=== PATIENT | female | born 1965 | race Caucasian/White ===

== ENCOUNTER 2016-12-11 11:56 | Inpatient (IN) | payer OTHER ==
[~2016-12-11] VITALS: Ht 165.1 cm; Wt 65.8 kg
[2016-12-11 12:05] VITALS: BP_SYST 116
[2016-12-11 12:55] LABS: BILIRUBIN,URINE NEGATIVE (NEGATIVE); BLOOD, URINE 3+ (NEGATIVE); CLARITY/URINE HAZY (CLEAR); COLOR,URINE RED (YELLOW); GLUCOSE,URINE 3+ (NEGATIVE); KETONES,URINE 3+ (NEGATIVE); LEUKOCYTE ESTERASE ,URINE NEGATIVE (NEGATIVE); NITRITE, URINE NEGATIVE (NEGATIVE); PROTEIN URINE 1+ (NEGATIVE); UROBILINOGEN,URINE 0.2 (0.2-1.0)
[2016-12-11 12:59] LABS: BASOPHILS # (AUTO) 0.1 K/uL (0.0-0.2); BASOPHILS % (AUTO) 0.6 % (0.0-2.0); EOSINOPHILS % (AUTO) 0.3 % (0.0-4.0); LYMPHOCYTES # (AUTO) 2.1 K/uL (1.0-5.5); LYMPHOCYTES % (AUTO) 19.6 % (20.5-51.5); MEAN CORPUSCULAR HEMOGLOBIN 19 pg (27-31); MEAN CORPUSCULAR HGB CONC 30 % (32-36); MEAN CORPUSCULAR VOLUME 63 fL (79.0-98.0); MONOCYTES # (AUTO) 0.4 K/uL (0.0-1.0); MONOCYTES % (AUTO) 3.4 % (1.7-9.3); NEUTROPHILS # (AUTO) 7.9 K/uL (1.8-7.7); NEUTROPHILS % (AUTO) 76.1 % (40.0-70.0); PLATELET COUNT (AUTO) 333 K/uL (130-430); WHITE BLOOD COUNT (AUTO) 10.5 K/uL (4.8-10.8)
[2016-12-11 13:07] LABS: HEMOGLOBIN 6.6 g/dL (12.0-16.0)
[2016-12-11 13:08] LABS: INR 0.9 (0.8-1.2); PROTHROMBIN TIME 9.7 SECS (9.5-12.5)
[2016-12-11 13:13] LABS: BACTERIA,URINE FEW /HPF (None Seen); RBC,URINE >100 /HPF (0-3); WBC,URINE 0-3 /HPF (0-3)
[2016-12-11 13:17] LABS: ALBUMIN 3.3 g/dL (3.4-4.8); CALCIUM 8.8 mg/dL (8.4-11.0); CREATININE 1.17 mg/dL (0.55-1.30); POTASSIUM 5.2 mmol/L (3.5-5.1); TOTAL BILIRUBIN 0.5 mg/dL (0.0-1.0)
[2016-12-11] MEDS ORDERED: LISI-600 PO (13:57)
[2016-12-11] MEDS ORDERED: INSU100V (13:57)
[2016-12-11] MEDS ORDERED: INSU100V9 SUBCUT (13:57)
[2016-12-11] MEDS ORDERED: INSULIN REGULAR, HUMAN 10 UNITS/0.1 ML INJ IVP ONE (14:00)
[2016-12-11] MEDS ORDERED: NACL 0.9% 1,000 ML IV ONE (14:00)
[2016-12-11 15:07] LABS: BLOOD GAS PH 7.302 (7.350-7.450)
[2016-12-11 15:08] LABS: ABG TOTAL HEMOGLOBIN 6.5 G/dL (12.0-18.0); BLOOD GAS BASE EXCESS -11.4 mmol/L (-3.0-3.0); BLOOD O2Hb% 40.4 % (94.0-97.0)
[2016-12-11 15:09] LABS: BLOOD GAS HHB 58.3 % (0.0-6.0)
[2016-12-11 16:00] VITALS: BP_SYST 91
[2016-12-11] MEDS: NACL 0.9% 1,000 ML IV SCH ×2 (16:32→22:10)
[2016-12-11] MEDS: INSULIN REGULAR, HUMAN 100 UNITS/ML, 10 ML VIAL (novoLIN R) SUBCUT PRN ×2 (17:27→22:13)
[2016-12-11 17:31] LABS: CALCIUM 8.3 mg/dL (8.4-11.0); CREATININE 1.12 mg/dL (0.55-1.30); POTASSIUM 4.6 mmol/L (3.5-5.1)
[2016-12-11 20:00] VITALS: BP_SYST 108
[2016-12-11 23:36] VITALS: BP_SYST 101
[2016-12-12] MEDS: INSULIN REGULAR, HUMAN 100 UNITS/ML, 10 ML VIAL (novoLIN R) SUBCUT PRN ×2 (00:53→12:21)
[2016-12-12 03:39] VITALS: BP_SYST 117
[2016-12-12] MEDS: NACL 0.9% 1,000 ML IV SCH ×2 (04:50→09:08)
[2016-12-12 05:03] LABS: HEMATOCRIT 25.8 % (36-48); HEMOGLOBIN 8.1 g/dL (12.0-16.0)
[2016-12-12 07:14] LABS: CALCIUM 8.5 mg/dL (8.4-11.0); POTASSIUM 4.1 mmol/L (3.5-5.1)
[2016-12-12 08:00] VITALS: BP_SYST 122
[2016-12-12] MEDS ORDERED: PANTOPRAZOLE SODIUM 40 MG/VIAL (PROTONIX) IVP SCH (09:00)
[2016-12-12 12:08] VITALS: BP_SYST 129
[2016-12-12 12:49] VITALS: BP_SYST 129
== END 2016-12-12 13:21 | disposition home or self-care (01) ==
LOC: SED 11:56 → STU 15:17
PROC: 30233N1 Transfusion of Nonautologous Red Blood Cells into Peripheral Vein, Percutaneous Approach (ICD-10-PCS; principal; 2016-12-11)
DX: N93.8 Other specified abnormal uterine and vaginal bleeding (principal); E87.2 Acidosis; D64.9 Anemia, unspecified; E11.65 Type 2 diabetes mellitus with hyperglycemia; I10 Essential (primary) hypertension; Z79.4 Long term (current) use of insulin; Z79.899 Other long term (current) drug therapy
CPT/HCPCS: 36415; 36600; 76830-TC; 76857; 80048; 80053; 81000-TC; 82009-TC; 82803-TC; 82962; 83036; 84702-TC; 85018-TC; 85025; 85610-TC; 85730-TC; 86886; 86900; 86901; 86920; 96361; 96374; 99285; C9113; J1815; J7030; J7040; P9021

== ENCOUNTER 2016-12-26 19:19 | Emergency (ER) | payer OTHER ==
[~2016-12-26] VITALS: Ht 165.1 cm; Wt 66.7 kg
[~2016-12-26 19:19] MED LIST: INSU100V; INSU100V9 SUBCUT; LISI-600 PO
[2016-12-26 19:36] VITALS: BP_SYST 117
[2016-12-26 21:20] VITALS: BP_SYST 119
== END 2016-12-26 21:20 | disposition home or self-care (01) ==
LOC: SED 19:19
DX: R11.2 Nausea with vomiting, unspecified (principal); E11.9 Type 2 diabetes mellitus without complications; I10 Essential (primary) hypertension; Z79.4 Long term (current) use of insulin; Z79.899 Other long term (current) drug therapy
CPT/HCPCS: 82962; 99281

== ENCOUNTER 2017-01-25 18:20 | Inpatient (IN) | payer OTHER ==
[~2017-01-25] VITALS: Ht 165.1 cm; Wt 73.5 kg
[2017-01-25 18:28] VITALS: BP 158/89; PULSE 107; RESP 20; TEMP 98.3; O2SAT 99
--- NOTE | 2017-01-25 18:39 | NUR ---
Placed in room 08 . Placed on youth nutritional monitor, blood pressure machine and pulse oximeter. To gown for exam. Side rails up. Report given to bree GALVAN
--- NOTE | 2017-01-25 18:51 | NUR ---
ISRAEL Plascencia at bedside examining patient.
--- NOTE | 2017-01-25 18:52 | NUR ---
Pt complains of n/v since this morning, denies fever or diarrhea. Pt has a history of anemia and last month was admitted to this hospital for a blood transfusion. Pt is pale and has generalized weakness, was wheeled into the ER by family. No other injuries/complaints per pt or noted.
[2017-01-25] MEDS ORDERED: NACL 0.9% 1,000 ML IV ONE (19:00)
[2017-01-25 19:43] LABS: BASOPHILS # (AUTO) 0.1 K/uL (0.0-0.2); BASOPHILS % (AUTO) 0.4 % (0.0-2.0); EOSINOPHILS # (AUTO) 0.3 K/uL (0.0-0.4); EOSINOPHILS % (AUTO) 2.5 % (0.0-4.0); HEMATOCRIT 24.3 % (36-48); HEMOGLOBIN 7.5 g/dL (12.0-16.0); LYMPHOCYTES # (AUTO) 1.6 K/uL (1.0-5.5); LYMPHOCYTES % (AUTO) 12.4 % (20.5-51.5); MEAN CORPUSCULAR HEMOGLOBIN 20 pg (27-31); MEAN CORPUSCULAR HGB CONC 31 % (32-36); MEAN CORPUSCULAR VOLUME 66 fL (79.0-98.0); MONOCYTES % (AUTO) 7.6 % (1.7-9.3); NEUTROPHILS # (AUTO) 10.2 K/uL (1.8-7.7); NEUTROPHILS % (AUTO) 77.1 % (40.0-70.0); RED BLOOD CELL COUNT(AUTO) 3.69 MIL/uL (4.2-6.2); RED CELL DISTRIBUTION WIDTH 23.4 % (9.0-15.0); WHITE BLOOD COUNT (AUTO) 13.2 K/uL (4.8-10.8)
--- NOTE | 2017-01-25 19:50 | NUR ---
Dr Barillas at bedside examining patient
[2017-01-25 19:58] LABS: ALBUMIN 2.1 g/dL (3.4-4.8); CALCIUM 8.7 mg/dL (8.4-11.0); CREATININE 0.95 mg/dL (0.55-1.30); POTASSIUM 3.8 mmol/L (3.5-5.1); TOTAL BILIRUBIN 0.8 mg/dL (0.0-1.0)
[2017-01-25 20:07] LABS: PLATELET COUNT (AUTO) 569 K/uL (130-430)
[2017-01-25 20:09] LABS: BILIRUBIN,URINE NEGATIVE (NEGATIVE); BLOOD, URINE 2+ (NEGATIVE); CLARITY/URINE HAZY (CLEAR); COLOR,URINE YELLOW (YELLOW); GLUCOSE,URINE 3+ (NEGATIVE); KETONES,URINE TRACE (NEGATIVE); LEUKOCYTE ESTERASE ,URINE NEGATIVE (NEGATIVE); NITRITE, URINE NEGATIVE (NEGATIVE); PH,URINE 6.5 (5.0-8.0); PROTEIN URINE 2+ (NEGATIVE)
[2017-01-25 20:52] LABS: BACTERIA,URINE MODERATE /HPF (None Seen); MUCUS,URINE 1+ /LPF (None Seen)
[2017-01-25] MEDS ORDERED: NITR-85 PO (20:56)
[2017-01-25] MEDS ORDERED: LOSA25TA3 PO (20:56)
--- NOTE | 2017-01-25 20:56 | NUR ---
Medication reconciliation completed with information provided by patient. Any prior medication reconciliation on file was reviewed and corrected.
--- NOTE | 2017-01-25 21:00 | NUR ---
US at bedside
[2017-01-25 21:20] LABS: INR 1.1 (0.8-1.2); PROTHROMBIN TIME 11.6 SECS (9.5-12.5)
--- NOTE | 2017-01-25 21:47 | NUR ---
Pt on stable condition, VSS, ultrasound cont at bedside, no active N/V noted at this time.
--- NOTE | 2017-01-25 23:00 | NUR ---
ALERT AND ORIENTEDX4 VSS. ULTRASOUND IN PROGRESS AT BEDSIDE.
[2017-01-25] MEDS ORDERED: HEPARIN 25,000 UNITS/D5W 250ML 250 ML IV ONE (23:45)
[2017-01-25] MEDS ORDERED: HEPARIN SODIUM,PORCINE 5000 UNITS/ML VIAL IVP ONE (23:45)
[2017-01-26] VITALS (9 sets, daily range): BP systolic 129–153; BP diastolic 74–92; PULSE 93–108; RESP 16–18; TEMP 98.1–100.8; O2SAT 91–98
[2017-01-26] MEDS ORDERED: NACL 0.9% 1,000 ML IV ONE (00:15)
[2017-01-26] MEDS ORDERED: ONDANSETRON HCL 4 MG/2 ML VIAL ONE (00:43)
[2017-01-26] MEDS ORDERED: INSULIN REGULAR, HUMAN 100 UNITS/ML, 10 ML VIAL (novoLIN R) SUBCUT PRN (00:45)
[2017-01-26] MEDS ORDERED: ONDANSETRON HCL 4 MG/2 ML VIAL IVP ONE (00:45)
[2017-01-26] MEDS ORDERED: IOHEXOL 350 mgI/mL, 150 ML INFUS..BTL IV ONE (00:46)
--- NOTE | 2017-01-26 00:55 | NUR ---
Patient transported to radiology via GURNEY, accompanied by DIRECTOR PRODUCT DEVELOPMENT.
--- NOTE | 2017-01-26 01:00 | NUR ---
Patient will be admitted to care of DR BEAULIEU. Admitted to MED/ SURG unit. Will go to room 130. Belongings list completed. Summary report printed. Report will be given at bedside.
--- NOTE | 2017-01-26 01:16 | NUR ---
Returned from radiology, back to [facility].
--- NOTE | 2017-01-26 01:30 | NUR ---
PT TRANSPORTED VIA GURNEY TO RM 130. VERBAL REPORT GIVEN AT BEDSIDE TO CHARO GALVAN. STABLE.
--- NOTE | 2017-01-26 01:32 | NUR ---
ADMISSION NOTE Received patient from ER via gurney. Patient admitted with diagnosis of Anemia. Patient is awake, alert, oriented X 4. Patient oriented to hospital room, call light, toileting, pain management and safety-teach back done. Patient informed that Alycia will be primary nurse and that their room number is 130A. Personal belongings checked and Belongings List documented. Call light within reach.
--- NOTE | 2017-01-26 02:18 | NUR ---
BLOOD TRANSFUSION CONSENT Patient denies any questions or concerns regarding blood transfusion and stated she's received one before when she was hospitalized. Consent obtained and will be filed in patient's chart.
[2017-01-26] MEDS ORDERED: FUROSEMIDE 20 MG/2 ML VIAL IVP ONE ×2 (02:30→13:00)
--- NOTE | 2017-01-26 03:26 | NUR ---
SPOKE TO DENY FROM LAB Spoke to Deny from lab in regarding to patient's blood transfusion order. Order to be clarified in eMAR.
--- NOTE | 2017-01-26 03:26 | NUR ---
CONSULT; DR. CARRILLO IS AWARE OF THE CONSULT I CALLED [phone] HE ANSWERED I TOLD HIM ABOUT THE CONSULT FOR THIS MORNING REASON: VAGINAL BLEEDING REQUESTING: DR. BEAULIEU
--- NOTE | 2017-01-26 03:54 | NUR ---
BT INITIATION: Consent signed agreeing to administration of blood. Blood has been type and crossmatched. Blood sent from blood bank. Information on unit of blood checked against patient wristband at bedside by two nurses. All information matches. Patient or responsible constitution party informed of potential complications associated with blood transfusion. Informed of possible transfusion reaction symptoms. Aware of need to notify nurse at once of itching, shortness of breath, flushing, feeling of impending doom, or other symptoms not previously present. Vital signs taken within 5 minutes prior to initiation of transfusion. RN will remain with patient for first 15 minutes of transfusion at which time vital signs will be re-assessed. Addendum: 01/26/17 at 0405 by Alycia Morales RN BT INITIATION: Consent signed agreeing to administration of blood. Blood has been type and crossmatched. Blood sent from blood bank. Information on unit of blood checked against patient wristband at bedside by two nurses. All information matches. Patient or responsible constitution party informed of potential complications associated with blood transfusion. Informed of possible transfusion reaction symptoms. Aware of need to notify nurse at once of itching, shortness of breath, flushing, feeling of impending doom, or other symptoms not previously present. Vital signs taken within 5 minutes prior to initiation of transfusion. RN will remain with patient for first 15 minutes of transfusion at which time vital signs will be re-assessed. VSS: 98.9F, 102 PULSE, 16 RR, 137/86 BP, 91% O2 SAT.
--- NOTE | 2017-01-26 04:00 | NUR ---
BLOOD TRANSFUSION INITIATION Blood transfusion started. Will continue to monitor.
--- NOTE | 2017-01-26 04:15 | NUR ---
15 MINUTES VITALS AFTER BT INITIATION VSS: 98.6F, 99 HR, 16 RR, 138/71 BP, 92% O2 SATURATION. DENIES ANY PAIN OR DISCOMFORT AT THIS TIME. WILL CONTINUE TO MONITOR.
--- NOTE | 2017-01-26 06:42 | NUR ---
FIRST UNIT OF PRBCS COMPLETE/LASIX GIVEN Late entry due to patient care. Patient tolerated well. VSS: 148/85 bp, hr 100; 96% o2 sat, rr 16. Due lasix given. See EMAR.
--- NOTE | 2017-01-26 06:45 | NUR ---
SECOND PRBCS/BT INITIATION: Consent signed per [] agreeing to administration of blood. Blood has been type and crossmatched. Blood sent from blood bank. Information on unit of blood checked against patient wristband at bedside by two nurses. All information matches. Patient or responsible constitution party informed of potential complications associated with blood transfusion. Informed of possible transfusion reaction symptoms. Aware of need to notify nurse at once of itching, shortness of breath, flushing, feeling of impending doom, or other symptoms not previously present. Vital signs taken within 5 minutes prior to initiation of transfusion. RN will remain with patient for first 15 minutes of transfusion at which time vital signs will be re-assessed. VSS: 98.5F, 96HR, 17RR, 146/88 BP, 96% O2 SATURATION.
--- NOTE | 2017-01-26 06:50 | NUR ---
SECOND BLOOD TRANSFUSION STARTED Patient is stable with no s/s of acute distress. Will continue to monitor.
--- NOTE | 2017-01-26 07:06 | NUR ---
15 MINUTES VITAL SIGNS
--- NOTE | 2017-01-26 07:53 | NUR ---
CLOSING Patient is stable. Patient and bedside report endorsed to day shift nurse.
--- NOTE | 2017-01-26 08:00 | NUR ---
rounds rec patient awake laert with hob elevated with a blood transfusion in progress. resp easy and unlabored. denies chest pain fever or any untoward reaction for blood transfusion. bed in low position and side rails up and locked. call light withn reached.
--- NOTE | 2017-01-26 10:00 | NUR ---
rounds assisted to the br and marty well with steady gait nut feels weak as stated. family at bedside with patient. manuel pain. blood transfusion completed. no untoward reaction noted.
[2017-01-26 10:49] LABS: HEMATOCRIT 30.5 % (36-48); HEMOGLOBIN 9.6 g/dL (12.0-16.0); MEAN CORPUSCULAR HEMOGLOBIN 22 pg (27-31); MEAN CORPUSCULAR HGB CONC 32 % (32-36); PLATELET COUNT (AUTO) 519 K/uL (130-430); RED BLOOD CELL COUNT(AUTO) 4.39 MIL/uL (4.2-6.2); RED CELL DISTRIBUTION WIDTH 25.1 % (9.0-15.0); WHITE BLOOD COUNT (AUTO) 14.8 K/uL (4.8-10.8)
--- NOTE | 2017-01-26 10:51 | NUR ---
CONSULTATION PAGED REASON FOR CONSULTATION:PLEURAL EFFUSION WAS CONSULT CALLED?Y PERSON WHO WAS NOTIFIED:PRUDENCIO CHRISTIANSON CONSULTING PHYSICIAN:PRUDENCIO CHRISTIANSON REPAIR MILLER SPECIALTY:PULMONARY REPAIR MILLER PHONE NUMBER:[phone] ORDERING PHYSICIAN:NICCI ROSE
[2017-01-26 10:53] LABS: MEAN CORPUSCULAR VOLUME 70 fL (79.0-98.0)
[2017-01-26 11:02] LABS: CALCIUM 8.4 mg/dL (8.4-11.0); CREATININE 0.85 mg/dL (0.55-1.30); POTASSIUM 4.3 mmol/L (3.5-5.1)
--- NOTE | 2017-01-26 11:25 | NUR ---
CONSULTATION PAGED REASON FOR CONSULTATION:VAGINAL BLEED WAS CONSULT CALLED?Y PERSON WHO WAS NOTIFIED:EXCHANGE CONSULTING PHYSICIAN:PHIL WATKINS DEWER SPECIALTY:OB-MANAGER CONCRETE DEWER PHONE NUMBER:[phone] ORDERING PHYSICIAN:NICCI ROSE
--- NOTE | 2017-01-26 12:00 | NUR ---
rounds seen by dr parker and with orders.ambulates with min assists to the br and marty well.
[2017-01-26] MEDS ORDERED: DIATR MEGLU/DIATRIZ SOD 30 ML SOLUTION PO ONE (12:13)
--- NOTE | 2017-01-26 12:24 | NUR ---
CONSULT REMELT FURNACE EXPEDITER CANCELLED VAGINAL BLEEDING CALLED DR ROGERS OFFICE @ [phone] S/W RENAE @ [phone] TO CANCELL CONSULT
[2017-01-26] MEDS: INSULIN REGULAR, HUMAN 100 UNITS/ML, 10 ML VIAL (novoLIN R) SUBCUT PRN ×2 (12:30→20:15)
[2017-01-26 12:34] LABS: ATYPICAL LYMPHOCYTES % 0 % (0-0); BAND % (MANUAL) 5 % (0-6); LYMPHOCYTES % (MANUAL) 20 % (20-46)
[2017-01-26 12:35] LABS: BASOPHILS % (MANUAL) 0 % (0-2); EOSINOPHILS % (MANUAL) 1 % (0-7); MONOCYTES % (MANUAL) 14 % (0-11)
[2017-01-26 13:42] LABS: TOTAL IRON BIND. CAPACITY 232 ug/dL (250-450)
--- NOTE | 2017-01-26 15:45 | NUR ---
rounds pt via wheelchair for ct abdomen.npo was maintained for 4 hours prior to test.
[2017-01-26] MEDS ORDERED: IOHEXOL 100 ML IV ONE (16:00)
--- NOTE | 2017-01-26 18:30 | NUR ---
closing notes ambulating at intervals .no sob noted. bed in low position and side rails up and locked. no c/o pain.
--- NOTE | 2017-01-26 20:17 | NUR ---
Accu check Accu check done coverage given as order Please see Emar. Patient educate operations and maintenance specialist light. Safety precautions in place. Call light is with patient educated to use for assistance. Family is at bed side. Will continue to monitor.
--- NOTE | 2017-01-26 22:47 | NUR ---
Rn Rounding Patient appears to be resting with eyes closed, visible chest rise and fall no signs of distress, breathing is equal and non labored. Patient has safety precautions in place. Call light is with her. Will continue to monitor her.
--- NOTE | 2017-01-27 00:26 | NUR ---
Urine collection 24 hour urine collection started. Patient assisted to bathroom and back to bed . Patient shows no signs of distress breathing is equal and non labored. Patient has safety precautions in place but refusing bed alarm. Educated to use call light for assitance. Call light is with patient .Will continue to monitor.
[2017-01-27 00:44] VITALS: BP 142/72; PULSE 106; RESP 16; TEMP 98.8; O2SAT 97
--- NOTE | 2017-01-27 02:26 | NUR ---
RN rounding Patient appears to be resting with eyes closed visible chest rise and fall no signs of distress breathign is equal and non labored. Patient has safety precautions in place refusing bed alarm. Patient has call light with her. Will continue to monitor.
[2017-01-27 03:42] VITALS: BP 142/72; PULSE 106; RESP 18; TEMP 98.8; O2SAT 97
--- NOTE | 2017-01-27 04:59 | NUR ---
RN rounding Patient is awake and laying in bed watching television. Patient shows no signs distress breathing is equal and non labored. Patient has safety precautions in place she is refusing her bed alarm. Call light is with patient educated to use for assistance. Will continue to monitor.
[2017-01-27] MEDS: INSULIN REGULAR, HUMAN 100 UNITS/ML, 10 ML VIAL (novoLIN R) SUBCUT PRN ×4 (06:07→21:37)
--- NOTE | 2017-01-27 06:33 | NUR ---
RN closing note Patient is awake and laying in bed no signs of distress breathing is equal and non labored. Patient Accu check done coverage was given. Patient has safety precautions in place but refusing bed alarm at this time. Call light is with patient educated to use call light for assistance. patient is stable at this time. [facility].
[2017-01-27 07:02] LABS: BASOPHILS # (AUTO) 0.1 K/uL (0.0-0.2); BASOPHILS % (AUTO) 0.4 % (0.0-2.0); EOSINOPHILS # (AUTO) 0.3 K/uL (0.0-0.4); EOSINOPHILS % (AUTO) 1.9 % (0.0-4.0); HEMATOCRIT 28.9 % (36-48); HEMOGLOBIN 9.2 g/dL (12.0-16.0); LYMPHOCYTES # (AUTO) 2.1 K/uL (1.0-5.5); LYMPHOCYTES % (AUTO) 12.6 % (20.5-51.5); MEAN CORPUSCULAR HEMOGLOBIN 22 pg (27-31); MEAN CORPUSCULAR HGB CONC 32 % (32-36); MEAN CORPUSCULAR VOLUME 70 fL (79.0-98.0); MONOCYTES # (AUTO) 1.1 K/uL (0.0-1.0); MONOCYTES % (AUTO) 6.5 % (1.7-9.3); NEUTROPHILS # (AUTO) 12.9 K/uL (1.8-7.7); PLATELET COUNT (AUTO) 441 K/uL (130-430); RED BLOOD CELL COUNT(AUTO) 4.14 MIL/uL (4.2-6.2); WHITE BLOOD COUNT (AUTO) 16.5 K/uL (4.8-10.8)
[2017-01-27 07:35] LABS: ALBUMIN 1.9 g/dL (3.4-4.8); CALCIUM 8.2 mg/dL (8.4-11.0); CREATININE 0.94 mg/dL (0.55-1.30); POTASSIUM 4.3 mmol/L (3.5-5.1)
[2017-01-27 08:00] VITALS: BP 138/85; PULSE 101; RESP 18; TEMP 99.2; O2SAT 96
--- NOTE | 2017-01-27 08:00 | NUR ---
initial notes rec patient awake alert sitting in chair at the bedside and marty well. resp easy and unlabored. no acute distress noted. bed in low position and call light within reached . denies pain at this time. call light within reached and knows when to call for assistance.
--- NOTE | 2017-01-27 09:58 | NUR ---
LILA JOSHI ALREADY SPOKE TO DR. SWAN ABOUT CONSULT. NOTHING FURTHER NEEDED.
--- NOTE | 2017-01-27 10:00 | NUR ---
rounds seen by dr oreilly and spoke with dr ortiz to see patient today. no acute distress noted.
[2017-01-27] MEDS: LISINOPRIL 5 MG TABLET PO SCH (11:52)
[2017-01-27 11:56] LABS: NEUTROPHILS % (AUTO) 78.6 % (40.0-70.0)
--- NOTE | 2017-01-27 12:00 | NUR ---
rounds seen patient ambulating on the hallway and marty well. bs was checked and no hypo hyperglycemic reaction noted.
[2017-01-27 12:24] VITALS: BP 147/88; PULSE 103; RESP 16; TEMP 98.7; O2SAT 97
--- NOTE | 2017-01-27 16:00 | NUR ---
rounds resting comfortably, no acute distress noted. continue to collect urine collection when pt calls.
[2017-01-27 17:15] VITALS: BP 145/80; PULSE 107; RESP 20; TEMP 99.4; O2SAT 93
--- NOTE | 2017-01-27 18:00 | NUR ---
rounds pt continue to wait for dr ortiz. no acuter distress noted.
--- NOTE | 2017-01-27 19:00 | NUR ---
closing notes dr ortiz was called re pt's concerned of having surgery elicia. stated will be here later and will see patient. no hypo hyperglycemic reaction noted. enodesed re 24 hour urine collection which will end at midnight.
--- NOTE | 2017-01-27 19:50 | NUR ---
STARTING NOTE GENERAL HELPER Patient sitting in bed. Family is at the bed side. The patient shares that she hopes to have a surgery tomorrow (to remove her abdominal cyst/fibroid). Report received from the day shift nurse. PAtient in room air, SaO2 96%.
[2017-01-27 20:00] VITALS: BP 151/89; PULSE 108; RESP 18; TEMP 99.7; O2SAT 96
--- NOTE | 2017-01-27 20:30 | NUR ---
DR. JOSE AT THE BED SIDE Dr. Jose came to see the patient. He explained to the patient that tomorrow morning she will have a surgery: total hysterectomy with bilat. salpingo oophorectomy using daVinci. The patient is supposed to be NPO after midnight. Consent will be obtained and papers prepared. The patient also requested ACCU checks q2h coverage after the surgery. Per Dr. Jose: these requests are OK-ed.
--- NOTE | 2017-01-27 22:35 | NUR ---
ROUNDS Patient in bed resting. Family left for the night. No pain or distress observed. Fall precautions in place. Patient walks independently to the bathroom.
[2017-01-28] VITALS (10 sets, daily range): BP systolic 122–151; BP diastolic 72–87; PULSE 87–105; RESP 16–20; TEMP 97.7–98.8; O2SAT 93–100; Ht 165.1 cm; Wt 73.5 kg
--- NOTE | 2017-01-28 00:40 | NUR ---
ROUNDS Patient sitting in bed watching TV. No S/S of any distress noted.
--- NOTE | 2017-01-28 02:50 | NUR ---
ROUNDS Patient in bed resting. No pain or distress noted. Fall precautions in place.
[2017-01-28 03:56] LABS: BASOPHILS % (AUTO) 0.6 % (0.0-2.0); EOSINOPHILS % (AUTO) 1.9 % (0.0-4.0); HEMATOCRIT 28.8 % (36-48); MEAN CORPUSCULAR HEMOGLOBIN 22 pg (27-31); MEAN CORPUSCULAR HGB CONC 31 % (32-36); MEAN CORPUSCULAR VOLUME 69 fL (79.0-98.0); MONOCYTES % (AUTO) 6.7 % (1.7-9.3); NEUTROPHILS % (AUTO) 76.8 % (40.0-70.0); PLATELET COUNT (AUTO) 423 K/uL (130-430); RED BLOOD CELL COUNT(AUTO) 4.15 MIL/uL (4.2-6.2); WHITE BLOOD COUNT (AUTO) 14.7 K/uL (4.8-10.8)
[2017-01-28 03:57] LABS: BASOPHILS # (AUTO) 0.1 K/uL (0.0-0.2); EOSINOPHILS # (AUTO) 0.3 K/uL (0.0-0.4); LYMPHOCYTES # (AUTO) 2.1 K/uL (1.0-5.5); NEUTROPHILS # (AUTO) 11.2 K/uL (1.8-7.7)
[2017-01-28 03:59] LABS: CALCIUM 8.4 mg/dL (8.4-11.0); CREATININE 0.88 mg/dL (0.55-1.30); POTASSIUM 4.5 mmol/L (3.5-5.1)
[2017-01-28 04:05] LABS: TOTAL BILIRUBIN 0.6 mg/dL (0.0-1.0)
--- NOTE | 2017-01-28 05:00 | NUR ---
ROUNDS Patient in bed sleeping. No pain or distress noted.
--- NOTE | 2017-01-28 06:18 | NUR ---
BLOOD SUGAR 366, DR. JOSE PAGED Patient's blood sugar is 366. The nurse called Dr. Jose on his cell phone to inform him about that. Dr. Jose stated to give coverage to the patient per existing sliding scale and repeat the ACCU check in 1 hour.
[2017-01-28] MEDS: INSULIN REGULAR, HUMAN 100 UNITS/ML, 10 ML VIAL (novoLIN R) SUBCUT PRN ×3 (06:30→20:57)
--- NOTE | 2017-01-28 07:30 | NUR ---
Initial notes: patient on bed, awake, alert and oriented. Stable. at bedside. Discussed plan of care. Call light within reach. Report received at bedside.
--- NOTE | 2017-01-28 07:35 | NUR ---
CLOSING NOTE SOFT SUGAR CUTTER Patient in bed resting. is at the bed side. The patient will have surgery total hysterectomy at 10:30 today. Signed consent and OR papers are in the chart. Patient is on room air, SaO2 95%. Report given to the day shift nurse.
[2017-01-28] MEDS ORDERED: INSULIN REGULAR, HUMAN 100 UNITS/ML, 10 ML VIAL SUBCUT ONE ×2 (08:00→09:15)
--- NOTE | 2017-01-28 08:03 | NUR ---
DR. JOSE PAGED FOR BLOOD SUGAR 325 The nurse Geri paged Dr. Jose to notify him of blood sugar 325. Dr. Jose ordered Novolin R 10 units X1 dose, IV fluids 0.45% NS at 150 cc/hr and he stated that if the blood sugar does not drop, it is possible that the surgery be canceled. All that information was conveyed to the day shift nurse Iris GALVAN.
[2017-01-28] MEDS ORDERED: 0.45% NACL 1,000 ML IV SCH (08:15)
[2017-01-28] MEDS: LOSARTAN POTASSIUM 25 MG TABLET PO SCH (08:26)
[2017-01-28] MEDS: LISINOPRIL 5 MG TABLET PO SCH (08:27)
[2017-01-28] MEDS ORDERED: ONDANSETRON HCL 4 MG/2 ML VIAL IVP PRN ×2 (09:00→12:15)
[2017-01-28] MEDS ORDERED: OXYCODONE/ACETAMINOPHEN 5-325 TABLET PO PRN ×2 (09:00)
[2017-01-28] MEDS ORDERED: INSULIN GLARGINE 100 UNITS/ML 10 ML VIAL SUBCUT SCH (09:00)
--- NOTE | 2017-01-28 09:00 | NUR ---
Blood sugar: Paged Dr. Carrasco and gave update for pt sugar level of 272 with an order 10 u regular insulin x1.
[2017-01-28] MEDS ORDERED: MIDAZOLAM HCL 5 MG/ML VIAL (VERSED) IV ONE (09:23)
[2017-01-28] MEDS ORDERED: fentaNYL CITRATE/PF 100 MCG/2 ML AMP IVP ONE (09:23)
[2017-01-28] MEDS ORDERED: CLINDAMYCIN PHOSPHATE 900 mg/50mL D5W IV ONE (09:23)
[2017-01-28] MEDS ORDERED: ONDANSETRON HCL 4 MG/2 ML VIAL IVP ONE (09:23)
[2017-01-28] MEDS ORDERED: LR 1,000 ML IV.SOLN IV ONE (09:23)
[2017-01-28] MEDS ORDERED: NS 1000 ML BAG IV ONE (09:23)
[2017-01-28] MEDS ORDERED: ROCURONIUM BROMIDE 10 MG/ML (ZEMURON) IV ONE (09:23)
[2017-01-28] MEDS ORDERED: SEVOFLURANE 15 MIN GAS INH ONE (09:23)
[2017-01-28] MEDS ORDERED: NS IRRIG SOLN 1000 ML IR ONE (09:23)
[2017-01-28] MEDS ORDERED: KETOROLAC TROMETHAMINE 30 MG VIAL IVP ONE (09:23)
[2017-01-28] MEDS ORDERED: PROPOFOL 200MG/ 20ML VIAL (DIPRIVAN) IV ONE (09:23)
--- NOTE | 2017-01-28 11:03 | NUR ---
Transfer to O.R: patient wheeled via hospital bed to O.R. for hysterectomy.
[2017-01-28] MEDS ORDERED: LR 1,000 ML IV SCH (12:04)
[2017-01-28] MEDS ORDERED: MEPERIDINE HCL/PF 25 MG/ML DISP.SYRIN IVP PRN ×2 (12:15)
[2017-01-28] MEDS ORDERED: HYDROmorphone 1 MG INJ. 1 MG/ML AMPUL IVP PRN (12:15)
[2017-01-28] MEDS ORDERED: HYDROmorphone 2 MG/ML VIAL IVP PRN (12:15)
[2017-01-28] MEDS ORDERED: KETOROLAC TROMETHAMINE 30 MG VIAL IVP PRN (12:15)
--- NOTE | 2017-01-28 14:02 | NUR ---
Dietitian Recommendations * Recommend continuing CCHO + regular diet per LP, RD Please refer to Nutrition Assessment for details.
[2017-01-28] MEDS: HYDROmorphone 2 MG/ML VIAL IVP PRN ×2 (15:50→15:55)
[2017-01-28] MEDS ORDERED: ONDANSETRON HCL 4 MG/2 ML VIAL ONE (16:01)
[2017-01-28] MEDS ORDERED: HYDROmorphone 2 MG/ML VIAL ONE (16:10)
--- NOTE | 2017-01-28 17:10 | NUR ---
RECEIVED PT TRANSFER FROM OR, REPORT RECEIVED FROM ASSOCIATE ACCOUNT EXECUTIVE. VSS, NO SIGNS DISTRESS NOTED. PT C/O ABDOMINAL PAIN, WILL MEDICATE. WILL CONTINUE TO MONITOR.
[2017-01-28] MEDS ORDERED: MORPHINE 4 MG/ML INJ. SYRINGE ONE (17:13)
[2017-01-28] MEDS ORDERED: ONDANSETRON HCL 4 MG/2 ML VIAL IM PRN (17:30)
[2017-01-28] MEDS ORDERED: LEVOFLOXACIN IV SCH (17:30)
[2017-01-28] MEDS ORDERED: D5W IV SCH (17:30)
--- NOTE | 2017-01-28 17:38 | NUR ---
BT INITIATION Consent signed per pt agreeing to administration of blood. Blood has been type and crossmatched. Blood sent from blood bank. Information on unit of blood checked against patient wristband at bedside by two nurses. All information matches. Patient or responsible green party informed of potential complications associated with blood transfusion. Informed of possible transfusion reaction symptoms. Aware of need to notify nurse at once of itching, shortness of breath, flushing, feeling of impending doom, or other symptoms not previously present. Vital signs taken within 5 minutes prior to initiation of transfusion. RN will remain with patient for first 15 minutes of transfusion at which time vital signs will be re-assessed.
--- NOTE | 2017-01-28 19:00 | NUR ---
ENDORSEMENT OF CARE BEDSIDE REPORT GIVEN TO MASS RN USING SBAR APPROACH.
--- NOTE | 2017-01-28 19:10 | NUR ---
PT FOUND IN BED RESTING COMFORTABLY, ALL VITAL SIGNS STABLE, FAMILY AT BEDSIDE, 1 UNIT OF BLOOD INFUSING, PIV IN LFT AC,
[2017-01-28] MEDS: D5NS 1,000 ML IV SCH (19:54)
[2017-01-28] MEDS: metroNIDAZOLE 500 mg/NS 100 ML IV SCH (19:55)
[2017-01-28] MEDS: MORPHINE 4 MG/ML INJ. SYRINGE IVP PRN (19:56)
--- NOTE | 2017-01-28 20:00 | NUR ---
PM assessment received report from AM nurse. Per AM nurse pt is in ICU per Dr. Carrasco. Pt was about to receive albumin but pt 's blood pressure was stable SBP was in the 120's and DBP was in the 70's. Pt awake alert oriented x 4. Clear speech. Pt stated 0/10 pain level. Pain management education verbally, provided. Pt verbalized understanding. IV on the left AC 20g PRBC infusing at 120ml/hr and hand 20g d5 ns at 120ml/hr. patent. Pt on nasal cannula 2L. Tolerated well, spo2 at 99% at the time. Abdominal dressing noted. No drainage noted on the dressing. DVT prophylactic bilateral lower extremities. Educated to use call light for assistance. Pt verbalized understanding. Safety precaution in placed. Bed in the lowest positioned, locked. Call light within reach. will continue to monitor.
[2017-01-28] MEDS: LEVOFLOXACIN IV SCH (20:38)
[2017-01-28] MEDS: D5W IV SCH (20:38)
[2017-01-29] VITALS (22 sets, daily range): BP systolic 103–141; BP diastolic 56–96; PULSE 89–105; RESP 10–22; TEMP 96.8–98.9; O2SAT 96–100
--- NOTE | 2017-01-29 01:40 | NUR ---
BT INITIATION: Consent signed per pt agreeing to administration of blood. Blood has been type and crossmatched. Blood sent from blood bank. Information on unit of blood checked against patient wristband at bedside by two nurses. All information matches. Patient or responsible alliance party informed of potential complications associated with blood transfusion. Informed of possible transfusion reaction symptoms. Aware of need to notify nurse at once of itching, shortness of breath, flushing, feeling of impending doom, or other symptoms not previously present. Vital signs taken within 5 minutes prior to initiation of transfusion. RN remained with patient for first 15 minutes of transfusion at which time vital signs was re-assessed.
--- NOTE | 2017-01-29 02:00 | NUR ---
Note pt's chart was checked by the charge nurse. Charge nurse noted, on a paper order sheet. Dr. talamantes had stated, "To Tele". Will clarify order in the morning.
[2017-01-29] MEDS: metroNIDAZOLE 500 mg/NS 100 ML IV SCH ×4 (02:19→22:36)
--- NOTE | 2017-01-29 03:50 | NUR ---
Blood transfusion completed. IV site was flushed with NS 5ml.
[2017-01-29 06:52] LABS: ALBUMIN 1.5 g/dL (3.4-4.8); CALCIUM 7.4 mg/dL (8.4-11.0); CREATININE 1.13 mg/dL (0.55-1.30); POTASSIUM 5.2 mmol/L (3.5-5.1); TOTAL BILIRUBIN 1.2 mg/dL (0.0-1.0)
[2017-01-29] MEDS: D5NS 1,000 ML IV SCH ×2 (06:53→20:54)
[2017-01-29] MEDS: INSULIN REGULAR, HUMAN 100 UNITS/ML, 10 ML VIAL (novoLIN R) SUBCUT PRN ×2 (06:56→11:12)
[2017-01-29 07:07] LABS: EOSINOPHILS % (AUTO) 0.1 % (0.0-4.0); HEMATOCRIT 31.4 % (36-48); HEMOGLOBIN 10.1 g/dL (12.0-16.0); LYMPHOCYTES # (AUTO) 0.8 K/uL (1.0-5.5); LYMPHOCYTES % (AUTO) 4.1 % (20.5-51.5); MEAN CORPUSCULAR HEMOGLOBIN 23 pg (27-31); MEAN CORPUSCULAR HGB CONC 32 % (32-36); MEAN CORPUSCULAR VOLUME 73 fL (79.0-98.0); MONOCYTES # (AUTO) 0.7 K/uL (0.0-1.0); MONOCYTES % (AUTO) 3.2 % (1.7-9.3); NEUTROPHILS # (AUTO) 19.1 K/uL (1.8-7.7); NEUTROPHILS % (AUTO) 92.6 % (40.0-70.0); PLATELET COUNT (AUTO) 333 K/uL (130-430); RED BLOOD CELL COUNT(AUTO) 4.33 MIL/uL (4.2-6.2); RED CELL DISTRIBUTION WIDTH 25.8 % (9.0-15.0); WHITE BLOOD COUNT (AUTO) 20.6 K/uL (4.8-10.8)
--- NOTE | 2017-01-29 07:10 | NUR ---
paged dr. oreilly dialed [phone] spoke to fernando
--- NOTE | 2017-01-29 07:20 | NUR ---
ASSUMPTION OF CARE RECEIVED REPORT FROM MASS RN. PT SITTING IN CHAIR NEXT TO BED. VSS, SR ON MONITOR, NO SIGNS DISTRESS NOTED. PT DENIES PAIN AT THIS TIME. O2 SAT 100% ON 4L NC. WALKER IN PLACE DRAINING TO GRAVITY. MIDLINE ABDOMINAL INCISION WITH DRESSING CDI, RIGHT CALVIN DRAIN WITH MINIMAL RED DRAINAGE. D5NS @ 120ML/HR INFUSING THROUGH 20G L HAND IV, NO SIGNS INFILTRATION NOTED. PT IN CONCERNED THAT HER RECENT BLOOD GLUCOSE WAS 415, WILL CALL DR SHARP TO REPORT CRITICAL BLOOD GLUCOSE. WILL CONTINUE TO MONITOR.
--- NOTE | 2017-01-29 07:21 | NUR ---
paged dr. oreilly spoke to fernando dialed [phone]
--- NOTE | 2017-01-29 07:24 | NUR ---
CALL TO MD SPOKE TO DR SHARP ON PHONE REGARDING PT'S BLOOD GLUCOSE OF 415. RECEIVED MD ORDERS TO GIVE 12 UNITS INSULIN PER SLIDING SCALE, PHYSICIAN CONSULT FOR DR GALE, AND DECREASE IVF: D5NS @ 60ML/HR.
--- NOTE | 2017-01-29 08:24 | NUR ---
consult for dr. johnston called spoke to krysta dialed [phone]
--- NOTE | 2017-01-29 09:00 | NUR ---
ROUNDS DR SHARP HERE TO EVALUATE PT. AWARE OF BLOOD GLUCOSE, CONSULT FOR ENDOCRINE CALLED. NO NEW ORDERS RECEIVED AT THIS TIME. Addendum: 01/29/17 at 0934 by Gia Serrano RN SAID IT IS OKAY FOR PT TO START EATING ICE CHIPS.
[2017-01-29] MEDS: LOSARTAN POTASSIUM 25 MG TABLET PO SCH (09:05)
[2017-01-29] MEDS: LISINOPRIL 5 MG TABLET PO SCH (09:06)
[2017-01-29] MEDS: MORPHINE 4 MG/ML INJ. SYRINGE IVP PRN ×2 (09:07→14:52)
--- NOTE | 2017-01-29 09:07 | NUR ---
MORPHINE MORPHINE 4MG IVP GIVEN TO PT FOR 8/10 ABDOMINAL PAIN AT SURGICAL SITE. WILL MONITOR FOR PT RESPONSE TO MEDICATION.
--- NOTE | 2017-01-29 09:20 | NUR ---
MD ROUNDS DR HERNANDEZ HERE TO EVALUATE PT. NO NEW ORDERS RECEIVED AT THIS TIME.
--- NOTE | 2017-01-29 11:12 | NUR ---
BLOOD GLUCOSE FINGERSTICK BLOOD GLUCOSE 320, 8 UNITS NOVOLIN R GIVEN TO PT PER SLIDING SCALE ORDERS.
--- NOTE | 2017-01-29 11:30 | NUR ---
MD ROUNDS DR LAIRD HERE TO EVALUATE PT. MADE AWARE OF URINE OUTPUT AND CALVIN DRAINAGE. SAID PT IS OKAY TO BE TRANSFERRED TO TELE. WILL CONTINUE TO MONITOR.
--- NOTE | 2017-01-29 12:57 | NUR ---
PAIN ASSESSMENT PT SAYS PAIN IN ABDOMEN AT SURGICAL SITE IS 1/10, PT FEELS PAIN HAS BEEN WELL CONTROLLED AND DOES NOT WANT TO TAKE ANY PRN PAIN MEDICATIONS AT THIS TIME. WILL CONTINUE TO MONITOR PT AND PT'S PAIN AND ADMINISTER MEDICATIONS APPROPRIATELY.
[2017-01-29] MEDS ORDERED: 0.45% NACL 1,000 ML IV SCH (14:15)
--- NOTE | 2017-01-29 15:00 | NUR ---
MORPHINE MORPHINE 4MG IVP GIVEN TO PT FOR 8/10 ABDOMINAL PAIN AT SURGICAL SITE. WILL MONITOR FOR PT RESPONSE TO MEDICATION. IVF CHANGED TO 1/2NS @ 60ML/HR PER ORDERS BY DR HERNANDEZ.
--- NOTE | 2017-01-29 15:45 | NUR ---
ROUNDS DR SWAN HERE TO EVALUATE PT. ORDERS FOR PT TRANSFER TO [facility]. SAYS PT TO REMAIN NPO UNTIL DR LAIRD ORDERS FOR PT TO BE STARTED ON A DIET.
--- NOTE | 2017-01-29 16:40 | NUR ---
TRANSFER PT TRANSFERRED TO [facility] [address] PER ORDERS BY DR SWAN. PT TRANSFERRED IN WHEELCHAIR, NO SIGNS DISTRESS NOTED. PERSONAL BELONGINGS WITH PT. REPORT GIVEN TO CHRIS GALVAN USING SBAR APPROACH.
--- NOTE | 2017-01-29 16:50 | NUR ---
TRANSFER RECEIVED PT FROM ICU AAOX4 IN NO ACUTE DISTRESS. IVF INFUSING WELL INTO LT HAND, NO S/S OF INFILTRATION NOTED. TOLERATING O2 3L VIA NC, NO SOB NOTED. WALKER CATHETER WAS REMOVED IN ICU PRIOR TO PT BEING TRANSFERRED. WILL MONITOR FOR URINE OUTPUT. DRESSING TO ABDOMEN C/D/I, NO DRAINAGE NOTED. CALVIN NOTED TO RT SIDE WITH SEROSANGUINEOUS DRAINAGE, BULB COMPRESSED. NO ACTIVE BOWEL SOUNDS HEARD. DISCUSSED POC WITH PT INCLUDING ABX, PAIN MANAGEMENT AND WEANING OFF OF OXYGEN. PT VERBALIZED UNDERSTANDING. BED IN LOWEST POSITION WITH SIDE RAILS UPX2 ANC CALL LIGHT WITHIN REACH. PT ENCOURAGED TO USE CALL LIGHT FOR ASSISTANCE. VERBALIZED UNDERSTANDING.
--- NOTE | 2017-01-29 17:51 | NUR ---
PAIN PT C/O SEVERE PAIN. PAIN MEDICATION NOT DUE UNTIL 1899. WILL CALL MD FOR ORDERS. Addendum: 01/29/17 at 185 by Jessika Brown RN SPOKE WITH DR. LAIRD REGARDING PAIN. ORDERS RECEIVED AND CARRIED OUT.
[2017-01-29] MEDS: LEVOFLOXACIN IV SCH (18:06)
[2017-01-29] MEDS: D5W IV SCH (18:06)
[2017-01-29] MEDS ORDERED: KETOROLAC TROMETHAMINE 30 MG VIAL IVP PRN ×2 (18:15→19:45)
[2017-01-29] MEDS ORDERED: HYDROmorphone 2 MG/ML VIAL IVP PRN (18:15)
--- NOTE | 2017-01-29 18:52 | NUR ---
CLOSING NOTE PT RESTING IN BED WITH AT BEDSIDE. PAIN MUCH BETTER AFTER RECEIVING TORADOL BUT REQUESTING DILAUDID. WILL MEDICATE PRIOR TO SHIFT CHANGE REPORT. DRESSING TO ABDOMEN C/D/I, NO DRAINAGE NOTED. PT TOLERATING O2 3L VIA NC, NO SOB NOTED. IVF INFUSING WELL. BED IN LOWEST POSITION WITH SIDE RAILS UP X2 AND CALL LIGHT WITHIN REACH. PT ENCOURAGED TO USE CALL LIGHT FOR ASSISTANCE. VERBALIZED UNDERSTANDING. WILL ENDORSE TO CUSTOMER SERVICE OFFICER.
[2017-01-29] MEDS ORDERED: INSULIN REGULAR, HUMAN 100 UNITS/ML, 10 ML VIAL (novoLIN R) SUBCUT PRN (19:00)
--- NOTE | 2017-01-29 19:45 | NUR ---
INITIAL NOTES PT. RECEIVED RESTING IN BED, ALERT BUT SLEEPY. NO S/S OF ACUTE DISTRESS. DENIES PAIN OR NAUSEA. FAMILY PRESENT AT THE BEDSIDE. VSS AND SATING WELL ON 3L NASAL CANNULA. PT EDUCATED ON USE OF INCENTIVE SPIROMETER, RETURNS DEMONSTRATION. IV TO LEFT HAND #20 PATENT AND INFUSING FLUIDS ORDERED. NO SIGNS OF INFILTRATION. ABDOMINAL INCISION COVERED WITH DRESSING THAT IS CLEAN DRY AND INTACT. CALVIN DRAIN NOTED WITH BRIGHT RED DRAINAGE. PLAN OF CARE DISCUSSED WITH THE PATIENT AND USE OF CALL LIGHT ENCOURAGED. WILL CONT. TO MONITOR FOR CHANGES. SAFETY AND FALL PRECAUTIONS IN PLACE, CALL LIGHT IN REACH.
--- NOTE | 2017-01-29 22:40 | NUR ---
ROUNDS PT. RESTING IN BED. IV ABX INFUSING WELL ORDERED. NO ADVERSE REACTIONS NOTED. PT. DENIES PAIN OR NAUSEA AT THIS TIME. WILL CONT. TO MONITOR FOR CHANGES. SAFETY AND FALL PRECAUTIONS IN PLACE. CALL LIGHT IN REACH.
[2017-01-30] MEDS: KETOROLAC TROMETHAMINE 30 MG VIAL IVP SCH ×5 (00:30→23:35)
--- NOTE | 2017-01-30 00:41 | NUR ---
ROUNDS PT. RESTING IN BED, ASLEEP BUT EASILY AROUSES. NO S/S OF SOB OR DISTRESS. COMPLAINS OF MODERATE PAIN. SCHEDULED PAIN MEDICATION GIVEN. 35 CC EMPTIED FROM CALVIN DRAIN. DRESSING TO ABDOMEN REMAINS CLEAN, DRY AND INTACT. ALL NEEDS MET AT THIS TIME. WILL CONT. TO MONITOR FOR CHANGES. SAFETY AND FALL PRECAUTIONS IN PLACE. CALL LIGHT IN REACH.
--- NOTE | 2017-01-30 02:36 | NUR ---
ROUNDS ENCOURAGED PT. TO USE THE RESTROOM SINCE SHE HAS NOT VOIDED SINCE WALKER REMOVAL. STATES SHE DOES NOT HAVE TO GO. BLADDER SCAN DONE, REVEALS 624 MLS OF URINE. PT. TAKEN TO RESTROOM BUT STATES SHE DOES NOT HAVE THE URGE TO GO. BACK TO BED AND IN A COMFORTABLE POSITION. MANAGER HOTEL AWARE, STATES TO ENCOURAGE PT. AGAIN IN A FEW HOURS AND APPLY WARM COMPRESSES. PT. DENIES ANY PAIN OR DISCOMFORT. NO DISTENTION NOTED. WILL CONT. TO MONITOR. SAFETY AND FALL PRECAUTIONS IN PLACE, CALL LIGHT IN REACH.
[2017-01-30 04:02] VITALS: BP 113/71; PULSE 80; RESP 18; TEMP 98.6; O2SAT 98
--- NOTE | 2017-01-30 04:16 | NUR ---
ROUNDS PT. RESTING IN BED WITH EYES CLOSED. CHEST RISE AND FALL NOTED. NO SIGNS OF ACUTE DISTRESS. NO FACIAL GRIMACING INDICATING PAIN. WILL CONT. TO MONITOR. CALL LIGHT IN REACH.
[2017-01-30] MEDS ORDERED: D5W 1,000 ML IV PRN (05:27)
[2017-01-30] MEDS ORDERED: GLUCOSE 15 GM GEL (in 37.5 GM TUBE) PO PRN ×2 (05:30)
[2017-01-30] MEDS ORDERED: DEXTROSE 50% JECT 50 ML DISP.SYRIN IVP PRN ×2 (05:30)
[2017-01-30] MEDS: metroNIDAZOLE 500 mg/NS 100 ML IV SCH ×2 (05:35→14:16)
--- NOTE | 2017-01-30 05:45 | NUR ---
PAGING MD TO NOTIFY OF PT RETAINING URINE. WILL AWAIT CALL BACK.
--- NOTE | 2017-01-30 05:46 | NUR ---
BLOOD SUGAR BLOOD SUGAR NOTED TO BE 61, PT. COOL AND CLAMMY. PT. IS TIRED BUT AROUSABLE.. HYPOGLYCEMIC PROTOCOL INITIATED. WILL REASSESS SUGAR AND NOTIFY
--- NOTE | 2017-01-30 05:47 | NUR ---
robbin Martinez for orders spoke with Lizzie.
[2017-01-30] MEDS ORDERED: ONDANSETRON HCL 4 MG/2 ML VIAL IVP PRN (06:00)
--- NOTE | 2017-01-30 06:02 | NUR ---
MD ORDOÑEZ SPOKE WITH DR SHARP, GAVE ORDERS FOR DENISE AND HAVEN TO CHANGE ZOFRAN TO IV. WILL CARRY OUT.
--- NOTE | 2017-01-30 06:28 | NUR ---
PAGING PAGING DR GALE TO INFORM HIM THAT PT. BLOOD SUGAR WAS LOW, HYPOGLYCEMIC PROTOCOL WAS INITIATED AND BLOOD SUGAR WENT UP TO 100.
--- NOTE | 2017-01-30 06:34 | NUR ---
MD CALL SPOKE WITH DR GALE, ORDERS GIVEN TO CHANGE ACCU CHECK Q6 WHILE PT. NPO WILL CARRY OUT.
--- NOTE | 2017-01-30 06:35 | NUR ---
WALKER REFUSAL PT. REFUSING WALKER, STATES SHE IS TOO COLD. EDUCATION PROVIDED, WILL TRY AGAIN.
--- NOTE | 2017-01-30 06:49 | NUR ---
CLOSING NOTES ATTEMPTED A SECOND TIME TO INSERT WALKER CATH PER MD ORDERS, PT. REFUSED AND STATES "I AM FROZEN, I NEED TO WARM UP MORE FIRST." WILL ENDORSE TO AM NURSE. ALL NEEDS MET THROUGHOUT THE SHIFT, SAFETY AND FALL PRECAUTIONS WERE MAINTAINED. WILL ENDORSE CARE TO AM NURSE. CALL LIGHT IN REACH.
[2017-01-30 08:00] VITALS: BP 133/76; PULSE 101; RESP 20; TEMP 98.2
--- NOTE | 2017-01-30 08:00 | NUR ---
Opening Note Report received form Arabella GALVAN. Patient is resting in bed. Call light is within reach. Abdominal incision is covered with the original surgical dressing. Dressing has small amount of drainage on it. CALVIN drain is on the right side of the abdomen. Draining red fluid. IV is on the left hand 20g running D5NS@100. Patient has agreed to have the simmons catheter reinserted. Will continue to monitor.
[2017-01-30 08:30] LABS: MEAN CORPUSCULAR HEMOGLOBIN 23 pg (27-31)
[2017-01-30 08:39] LABS: HEMATOCRIT 34.2 % (36-48); HEMOGLOBIN 10.8 g/dL (12.0-16.0); MEAN CORPUSCULAR HGB CONC 32 % (32-36); MEAN CORPUSCULAR VOLUME 72 fL (79.0-98.0); PLATELET COUNT (AUTO) 425 K/uL (130-430); RED BLOOD CELL COUNT(AUTO) 4.73 MIL/uL (4.2-6.2)
--- NOTE | 2017-01-30 09:00 | NUR ---
Simmons cath insertion Inserted simmons catheter patient tolerated well.
[2017-01-30 09:28] LABS: ATYPICAL LYMPHOCYTES % 0 % (0-0); BAND % (MANUAL) 1 % (0-6); BASOPHILS % (MANUAL) 0 % (0-2); EOSINOPHILS % (MANUAL) 0 % (0-7); LYMPHOCYTES % (MANUAL) 2 % (20-46); MONOCYTES % (MANUAL) 4 % (0-11)
--- NOTE | 2017-01-30 10:02 | NUR ---
Rounds Patient is resting in bed. Johnson catheter is draining greta urine. made aware.
[2017-01-30] MEDS: LOSARTAN POTASSIUM 25 MG TABLET PO SCH (10:11)
[2017-01-30] MEDS: D5NS 1,000 ML IV SCH (11:22)
[2017-01-30] MEDS: INSULIN REGULAR, HUMAN 100 UNITS/ML, 10 ML VIAL (novoLIN R) SUBCUT PRN ×3 (11:25→23:42)
[2017-01-30 12:08] VITALS: BP 101/68; PULSE 99; RESP 16; TEMP 97.8; O2SAT 100
--- NOTE | 2017-01-30 12:12 | NUR ---
Rounds Assisted the patient out of bed to the chair. Patient tolerated well. Will continue to monitor.
--- NOTE | 2017-01-30 13:06 | NUR ---
PAGE CALLED FOR DR. SHARP. SPOKE TO NOLAN, .
--- NOTE | 2017-01-30 13:38 | NUR ---
CONS FOR DR INOCENCIA BOYLE FROM EXCHANGE CONS FOR ESBL OF WOUND 01/30 AT 1340
--- NOTE | 2017-01-30 14:20 | NUR ---
Rounds Patient is sitting up in a chair. Call light is within reach. Instructed the patient to use the IS.
--- NOTE | 2017-01-30 16:14 | NUR ---
MD Rounds Dr. Louie is speaking with the patient at the bedside.
[2017-01-30 18:03] VITALS: BP 102/68; PULSE 101; RESP 18; TEMP 97.6; O2SAT 99
--- NOTE | 2017-01-30 18:10 | NUR ---
Rounds Patient is sitting up in a chair. Instructed her to use the IS throughout the shift. Isolation precautions are in place. Dr. Adam saw the patient and orders were received. Johnson catheter is to gravity draining concentrated greta urine. CALVIN drain is draining red purulent drainage. Will endorse care to the oncoming nurse.
[2017-01-30 19:40] VITALS: BP 138/50; PULSE 100; RESP 17; TEMP 98.8; O2SAT 100
--- NOTE | 2017-01-30 19:40 | NUR ---
INITIAL NOTES PT. RECEIVED SITTING UP IN CHAIR, ALERT AND ORIENTED, ABLE TO MAKE NEEDS KNOWN. NO S/S OF ACUTE DISTRESS. DENIES PAIN OR NAUSEA. PRESENT AT THE BEDSIDE. VSS AND SATING WELL ON ROOM AIR. PT EDUCATED ON USE OF INCENTIVE SPIROMETER, RETURNS DEMONSTRATION OF 1000. NEW IV BEING STARTED BY RESOURCE NURSE. OLD IV REMOVED FROM LEFT HAND, IV CATHETER INTACT. PT. TOLERATED WELL. NEW IV TO RIGHT HAND #22. IVF RESTARTED AND INFUSING WELL ORDERED. ABDOMINAL INCISION COVERED WITH DRESSING THAT HAS SMALL AMOUNT OF RED DRAINAGE. CALVIN DRAIN NOTED WITH BRIGHT RED DRAINAGE. 50 CC EMPTIED. WALKER CATHETER DRAINING TO GRAVITY. NUVIA OUTPUT NOTED. PLAN OF CARE DISCUSSED WITH THE PATIENT AND USE OF CALL LIGHT ENCOURAGED. WILL CONT. TO MONITOR FOR CHANGES. SAFETY, FALL AND CONTACT ISOLATION PRECAUTIONS IN PLACE, CALL LIGHT IN REACH.
[2017-01-30] MEDS ORDERED: MEROPENEM 500 MG VIAL IV ONE (21:58)
[2017-01-30] MEDS ORDERED: FLUCONAZOLE 200 mg/ NS 100 ML IV ONE (21:59)
[2017-01-30] MEDS: FLUCONAZOLE 200 mg/ NS 100 ML IV SCH (22:10)
--- NOTE | 2017-01-30 22:24 | NUR ---
ROUNDS ASSISTED PT. IN AMBULATING THROUGHOUT THE HALLS. WEAK, BUT STEADY WITH USE OF WALKER AND ASSISTANCE. BACK TO BED AN IN A COMFORTABLE POSITION. NO SIGNS OF ACUTE DISTRESS OR SOB. DENIES PAIN. IV TO RIGHT HAND PATENT AND INFUSING ABX ORDERED. PT. IS SITTING IN CHAIR WITH PRESENT. ENCOURAGED PT. TO CALL WHEN SHE IS READY TO GET BACK INTO BED. VERBALIZES UNDERSTANDING. ORDERS RECEIVED FROM DR SHARP FOR SCDS, WILL APPLY WHEN PT. BACK I BED. CALL LIGHT WITHIN THE PT. REACH.
[2017-01-30] MEDS: MEROPENEM 1 GM in NS 100 ML IV SCH (23:34)
--- NOTE | 2017-01-31 00:10 | NUR ---
ROUNDS PT. ASSISTED BACK TO BED FROM SITTING IN CHAIR. IN COMFORTABLE POSITION. COMPLAINS OF ONLY MILD PAIN. MAINTENANCE SCHEDULED PAIN MEDICATIONS GIVEN. ACCUCKECK DONE, REGULAR INSULIN GIVEN PER SLIDING SCALE. IV ABX INFUSING WELL ORDERED WITH NO ADVERSE REACTIONS NOTED. IV PATENT WITH NO SIGNS OF INFILTRATION. WARM BLANKETS PROVIDED FOR COMFORT. REMAINS AT THE BEDSIDE. ENCOURAGED PT. TO CALL FOR ANY NEEDS. VERBALIZES UNDERSTANDING. SAFETY, FALL AND CONTACT PRECAUTIONS IN PLACE. CALL LIGHT IN REACH.
[2017-01-31 00:16] VITALS: BP 157/87; PULSE 99; RESP 16; TEMP 98.6; O2SAT 95
[2017-01-31 00:19] VITALS: BP 144/91; PULSE 99; RESP 16; TEMP 98.6; O2SAT 95
--- NOTE | 2017-01-31 02:04 | NUR ---
ROUNDS PT. RESTING WITH EYES CLOSED. CHEST RISE AND FALL NOTED. NO S/S OF SOB OR DISTRESS. NO FACIAL GRIMACING FOR PAIN. IVF INFUSING ORDERED. IV PATENT. AT BEDSIDE. WILL CONT. TO MONITOR. CALL LIGHT WITHIN THE PT. REACH.
[2017-01-31] MEDS: D5NS 1,000 ML IV SCH (02:51)
[2017-01-31 03:45] VITALS: BP 131/75; PULSE 100; RESP 20; TEMP 98.8; O2SAT 93
--- NOTE | 2017-01-31 04:28 | NUR ---
ROUNDS PT. RESTING IN BED. 35 CC EMPTIED FROM CALVIN DRAIN. ABDOMINAL DRESSING REINFORCED, SMALL AMOUNT OF DRAINAGE NOTED. NEW BAG OF IVF HUNG AND INFUSING WELL ORDERED. PT. REPOSITIONED FOR COMFORT. PILLOW SUPPORT AND BLANKETS PROVIDED. ALL NEEDS MET. AT BEDSIDE. WILL CONT. TO MONITOR. CALL LIGHT IN REACH.
[2017-01-31] MEDS: KETOROLAC TROMETHAMINE 30 MG VIAL IVP SCH ×2 (05:49→12:50)
[2017-01-31] MEDS: INSULIN REGULAR, HUMAN 100 UNITS/ML, 10 ML VIAL (novoLIN R) SUBCUT PRN ×3 (05:57→22:28)
--- NOTE | 2017-01-31 06:43 | NUR ---
CLOSING NOTES PT UP IN CHAIR. NO SIGNS OF ACUTE DISTRESS. ACCU CHECK DONE, INSULIN COVERAGE GIVEN PER SLIDING SCALE (SEE EMAR). SCHEDULED PAIN MEDS GIVEN, PT. STATES IT WAS EFFECTIVE IN MANAGING PAIN. IV ABX NOT AVAILABLE, PHARMACY NOT IN YET TO GIVE 0600 MERREM. WILL ENDORSE TO AM NURSE. ALL NEEDS MET THROUGHOUT THE SHIFT. SAFETY AND FALL PRECAUTIONS WERE MAINTAINED. WILL ENDORSE CARE TO AM NURSE. CALL LIGHT IN REACH.
[2017-01-31 07:13] LABS: HEMATOCRIT 32.9 % (36-48); HEMOGLOBIN 10.4 g/dL (12.0-16.0); MEAN CORPUSCULAR HEMOGLOBIN 23 pg (27-31); MEAN CORPUSCULAR HGB CONC 32 % (32-36); MEAN CORPUSCULAR VOLUME 73 fL (79.0-98.0); PLATELET COUNT (AUTO) 393 K/uL (130-430); RED BLOOD CELL COUNT(AUTO) 4.53 MIL/uL (4.2-6.2); RED CELL DISTRIBUTION WIDTH 25.3 % (9.0-15.0); WHITE BLOOD COUNT (AUTO) 25.4 K/uL (4.8-10.8)
[2017-01-31 07:32] LABS: ALBUMIN 1.7 g/dL (3.4-4.8); CALCIUM 7.8 mg/dL (8.4-11.0); CREATININE 1.19 mg/dL (0.55-1.30); POTASSIUM 4.7 mmol/L (3.5-5.1); TOTAL BILIRUBIN 0.4 mg/dL (0.0-1.0)
--- NOTE | 2017-01-31 07:49 | NUR ---
Patient A/Ox4. IV on right hand,#22, with D5 1/2 NS running at 100ml/hr, intact and patent. Patient is able to ambulate, currently sitting on a chair. CALVIN drain noted, draining sanguineous fluid. Dressing is covering the lower abdomen. +3 swelling noted on BLE. F/C draining greta urine, with sediments seen in the urine. Call light in place, bed locked at the lowest position, instructed to use call light for needs, POC is updated. Will continue to monitor.
[2017-01-31] MEDS: MEROPENEM 1 GM in NS 100 ML IV SCH ×3 (09:31→22:22)
[2017-01-31 09:35] LABS: BAND % (MANUAL) 3 % (0-6); BASOPHILS % (MANUAL) 0 % (0-2); EOSINOPHILS % (MANUAL) 0 % (0-7); LYMPHOCYTES % (MANUAL) 10 % (20-46); MONOCYTES % (MANUAL) 1 % (0-11)
--- NOTE | 2017-01-31 09:45 | NUR ---
Patient is seen by Dr. Walden. Dressing is changed with his presence.
--- NOTE | 2017-01-31 12:00 | NUR ---
Patient is having clear liquid diet. No signs of distress noted at this time.
[2017-01-31 12:28] VITALS: BP 141/79; PULSE 100; RESP 18; TEMP 98.7; O2SAT 100
[2017-01-31] MEDS: LOSARTAN POTASSIUM 25 MG TABLET PO SCH (12:50)
--- NOTE | 2017-01-31 14:20 | NUR ---
Patient is seen ambulating around hallway with FWW. No signs of distress noted.
--- NOTE | 2017-01-31 16:25 | NUR ---
Patient is sitting in a chair, with family at bedside.
[2017-01-31 16:41] VITALS: BP 139/83; PULSE 102; RESP 17; TEMP 98.6; O2SAT 98
[2017-01-31] MEDS ORDERED: ACETAMINOPHEN 325 MG TABLET PO PRN (18:15)
--- NOTE | 2017-01-31 18:15 | NUR ---
Patient's blood sugar 121. No coverage needed.
[2017-01-31] MEDS: HYDROcodone/ACETAMIN 5-325 MG TAB (NORCO/ VICODIN) PO PRN (18:53)
[2017-01-31 20:25] VITALS: BP 135/81; PULSE 95; RESP 17; TEMP 99.1; O2SAT 98
--- NOTE | 2017-01-31 20:25 | NUR ---
OPENING NOTES PATIENT IS A/OX4. NO SIGNS OF DISTRESS. BREATHING IS NON LABORED. VITAL SIGNS ARE STABLE. WALKER CATHETER AND IV ARE PATENT. PATIENT HAS NO COMPLAINT OF PAIN. FAMILY IS AT BEDSIDE. PATIENT INSTRUCTED TO CALL FOR ASSISTANCE. DRESSING TO ABDOMEN IS SLIGHTLY SOILED. PATIENT STATED THAT SHE WANTS DRESSING CHANGED AT BED TIME. WILL CHANGE DRESSING AT THIS TIME. CALL LIGHT IS WITHIN REACH. WILL CONTINUE TO MONITOR.
[2017-01-31] MEDS: FLUCONAZOLE 200 mg/ NS 100 ML IV SCH (22:04)
--- NOTE | 2017-01-31 22:21 | NUR ---
Nephro Consultation Paged Reason for consultation: Nephrotic Syndrome Was consult called: Yes Person who was notified: Enedelia Consulting Physician: Dr Garcia Ore Tester Specialty: Nephrology Ore Tester Ordered By: Dr Watkins
[2017-01-31] MEDS ORDERED: FLUCONAZOLE 200 mg/ NS 100 ML IV ONE (22:55)
--- NOTE | 2017-02-01 00:15 | NUR ---
DRESSING CHANGE DRESSING TO THE ABDOMEN WAS CHANGED. 4X4 GAUZE AND ABD PAD WERE REPLACED. INCISION SHOWED DRAINAGE OF PURULENT DRAINAGE. PURULENT DRAINAGE WAS ALSO NOTED AROUND THE CALVIN DRAIN. PATIENT TOLERATED IT WELL.
--- NOTE | 2017-02-01 00:30 | NUR ---
BLADDER TRAINING PATIENT HAS NOT HAD THE URGE TO VOID. WALKER CATHETER WAS UNCLAMPED. 350ML OF CLOUDY DARK YELLOW URINE WAS DRAINED INTO WALKER CATHETER BAG. WILL CLAMP AGAIN.
[2017-02-01 00:42] VITALS: BP 146/85; PULSE 100; RESP 18; TEMP 97.4; O2SAT 100
[2017-02-01 03:29] VITALS: BP 150/93; PULSE 98; RESP 18; TEMP 97.8; O2SAT 97
[2017-02-01] MEDS: MEROPENEM 1 GM in NS 100 ML IV SCH ×3 (06:13→23:03)
[2017-02-01] MEDS: INSULIN REGULAR, HUMAN 100 UNITS/ML, 10 ML VIAL (novoLIN R) SUBCUT PRN ×4 (06:15→22:31)
[2017-02-01] MEDS: HYDROcodone/ACETAMIN 5-325 MG TAB (NORCO/ VICODIN) PO PRN ×2 (06:27→23:02)
[2017-02-01 06:48] LABS: BASOPHILS # (AUTO) 0.1 K/uL (0.0-0.2); BASOPHILS % (AUTO) 0.7 % (0.0-2.0); EOSINOPHILS # (AUTO) 0.1 K/uL (0.0-0.4); EOSINOPHILS % (AUTO) 0.9 % (0.0-4.0); HEMATOCRIT 31.5 % (36-48); HEMOGLOBIN 9.9 g/dL (12.0-16.0); LYMPHOCYTES # (AUTO) 1.6 K/uL (1.0-5.5); LYMPHOCYTES % (AUTO) 10.3 % (20.5-51.5); MEAN CORPUSCULAR HEMOGLOBIN 23 pg (27-31); MEAN CORPUSCULAR HGB CONC 31 % (32-36); MEAN CORPUSCULAR VOLUME 73 fL (79.0-98.0); MONOCYTES # (AUTO) 0.7 K/uL (0.0-1.0); MONOCYTES % (AUTO) 4.4 % (1.7-9.3); NEUTROPHILS # (AUTO) 13.5 K/uL (1.8-7.7); PLATELET COUNT (AUTO) 387 K/uL (130-430); RED BLOOD CELL COUNT(AUTO) 4.34 MIL/uL (4.2-6.2); RED CELL DISTRIBUTION WIDTH 25.5 % (9.0-15.0)
--- NOTE | 2017-02-01 07:01 | NUR ---
COMMUNICATION WITH DR. BEAULIEU/CLOSING NOTES INFORMED DR. BEAULIEU OF PATIENT NOT FEELING THE URGE TO VOID. ASKED MD IF SHE STILL WANTED TO FOLLOW THROUGH WITH THE ODER TO D/C DENISE, STATED, " GO AHEAD AND D/C WALKER. PATIENT IS SITTING UP IN A CHAIR WATCHING TV WITH HER . NO SIGNS OF DISTRESS. BREATHING IS NONLABORED. CALL LIGHT IS WITHIN REACH. SAFETY MEASURES ARE IN PLACE. WILL ENDORSE ALL CARE TO THE MORNING NURSE.
[2017-02-01 07:10] LABS: ALBUMIN 1.5 g/dL (3.4-4.8); CALCIUM 8.1 mg/dL (8.4-11.0); CREATININE 0.78 mg/dL (0.55-1.30); POTASSIUM 4.2 mmol/L (3.5-5.1); TOTAL BILIRUBIN 0.5 mg/dL (0.0-1.0)
--- NOTE | 2017-02-01 07:30 | NUR ---
CLOSING NOTES PATIENT IS SITTING UP IN CHAIR TALKING TO . NO SIGNS OF DISTRESS. BREATHING IS NON LABORED. IV IS PATENT. MORNING NURSE INFORMED OF DR. BEAULIEU ORDER TO D/C DENISE. D/C WALKER ENDORSE TO MORNING NURSE. DRESSING IS CLEAN, DRY AND INTACT. CALL LIGHT IS WITHIN REACH. ALL CARE ENDORSED TO THE MORNING NURSE.
[2017-02-01 08:00] VITALS: BP 145/88; PULSE 106; RESP 18; TEMP 97.8
--- NOTE | 2017-02-01 08:00 | NUR ---
OPENING NOTES PATIENT IS A/OX4. NO SIGNS OF DISTRESS. BREATHING IS NON LABORED. VITAL SIGNS ARE STABLE. WALKER CATHETER AND IV ARE PATENT. PATIENT HAS NO COMPLAINT OF PAIN. FAMILY IS AT BEDSIDE. PATIENT INSTRUCTED TO CALL FOR ASSISTANCE. DRESSING TO ABDOMEN IS INTACT. CALL LIGHT IS WITHIN REACH. WILL CONTINUE TO MONITOR.
--- NOTE | 2017-02-01 08:00 | NUR ---
F/CAT D/C F/C AFTER 24HR URIN COLLECTION PER MEAGHAN JOSHI.
[2017-02-01] MEDS ORDERED: LISINOPRIL 5 MG TABLET PO SCH (09:00)
[2017-02-01] MEDS ORDERED: FUROSEMIDE 20 MG/2 ML VIAL IVP SCH (09:00)
[2017-02-01 09:02] LABS: NEUTROPHILS % (AUTO) 83.7 % (40.0-70.0)
[2017-02-01] MEDS: ENOXAPARIN SODIUM 40 MG/0.4 ML SYRINGE SUBCUT SCH (09:15)
[2017-02-01] MEDS: LOSARTAN POTASSIUM 25 MG TABLET PO SCH ×2 (09:15→22:13)
[2017-02-01] MEDS: ALBUMIN HUMAN 25% 50 ML IV SCH ×3 (09:16→16:57)
[2017-02-01] MEDS ORDERED: ALPRAZolam 0.25 MG TABLET PO PRN (12:00)
--- NOTE | 2017-02-01 12:00 | NUR ---
MEDICATION BARCODE IS NOT SCANNING PHARMACY IS AWARE.
[2017-02-01 12:14] VITALS: BP 145/86; PULSE 102; RESP 17; TEMP 98.5; O2SAT 99
[2017-02-01] MEDS: FUROSEMIDE 20 MG/2 ML VIAL IVP SCH ×2 (13:34→22:12)
[2017-02-01 16:15] VITALS: BP 149/85; PULSE 107; RESP 17; TEMP 99; O2SAT 98
--- NOTE | 2017-02-01 18:00 | NUR ---
CLOSING NOTES PATIENT IS SITTING UP IN CHAIR. BREATHING IS NON LABORED. IV IS PATENT. DRESSING IS CLEAN, DRY AND INTACT,J/P DRAN 100ML. CALL LIGHT IS WITHIN REACH. ALL CARE ENDORSED TO THE NIGHT NURSE.
[2017-02-01 19:25] VITALS: BP 145/80; PULSE 107; RESP 18; TEMP 99.6; O2SAT 99
--- NOTE | 2017-02-01 19:25 | NUR ---
INITIAL NOTE Patient sitting on the chair at bedside. No acute distress. Respiration even and unlabored. AO x4. Denied of pain. Skin warm and dry to touch. IV intact to right hand, no redness, no swelling, no drainage, infusing Albumin at this time. CALVIN intact to right abdomen with pinkish color drainage. Abdomen incision intact with dressing. F/C intact, clamped at this time. Able to demonstrate incentive spirometry with 1500ml. Encouraged to use as tolerated, verbally understanding. at bedside. Discussed the safety issue, use call light when need help, and plan of care, verbally understanding. On contact isolation precaution. Safety measure maintained. Call light within reached. Will continue to monitor.
--- NOTE | 2017-02-01 20:51 | NUR ---
AMBULATING WITH BY USING WALKER IN THE [address]. NO ACUTE DISTRESS.
[2017-02-01] MEDS: FLUCONAZOLE 200 mg/ NS 100 ML IV SCH (22:12)
--- NOTE | 2017-02-01 23:02 | NUR ---
NORCO GIVEN Patient c/o abdomen pain 06/20, [place] 5/325mg PO given as ordered. No acute distress. Safety measure maintained. Call light within reached. Continue to monitor.
--- NOTE | 2017-02-01 23:50 | NUR ---
BACK TO BED, DRESSING CHANGED Assisted patient back to bed. No acute distress. Unclamped F/C, drain gravity with 650ml of yellow urine out. Changed abdomen incision dressing. Approx stapled intact, with minimum purulent drainage, no odor smell. CALVIN drain intact to right abdomen with pink color with 30ml output. Safety measure maintained. Bed in low position, bed alarm on, side rails up. Call light within reached. Continue to monitor.
[2017-02-02 00:26] VITALS: BP 151/90; PULSE 112; RESP 18; TEMP 98.4; O2SAT 95
--- NOTE | 2017-02-02 01:25 | NUR ---
UNCLAMPED F/C With 800ml of clear urine out. No acute distress. Safety measure maintained. Call light within reached. Continue to monitor.
--- NOTE | 2017-02-02 03:16 | NUR ---
ROUND Patient resting on the bed with eyes closed. No acute distress. Respiration even and unlabored. Safety measure maintained. Bed in low position, bed alarm on, side rails up. Call light within reached. Continue to monitor.
[2017-02-02 03:31] VITALS: BP 150/85; PULSE 102; RESP 18; TEMP 98.9; O2SAT 95
--- NOTE | 2017-02-02 04:50 | NUR ---
ROUND Patient resting on the bed with eyes closed. No acute distress. Safety measure maintained. Bed in low position, bed alarm on, side rails up. Call light within reached. Continue to monitor.
[2017-02-02] MEDS: MEROPENEM 1 GM in NS 100 ML IV SCH ×3 (06:39→23:37)
[2017-02-02] MEDS: FUROSEMIDE 20 MG/2 ML VIAL IVP SCH ×3 (06:43→21:49)
--- NOTE | 2017-02-02 06:48 | NUR ---
CLOSING NOTE Patient sitting on the chair at bedside. No acute distress. Respiration even and unlabored. Skin warm and dry to touch. IV intact to LFA, no redness, no swelling. CALVIN intact to right abdomen with pink color drainage. Abdomen incision intact with dressing. F/C intact, clamped at this time. On contact isolation precaution for ESBL of urine. All needs met. Hourly rounding during shift. Safety measure maintained. Call light within reached. Will endorse to morning shift nurse.
[2017-02-02] MEDS: INSULIN REGULAR, HUMAN 100 UNITS/ML, 10 ML VIAL (novoLIN R) SUBCUT PRN ×4 (06:55→21:49)
[2017-02-02 07:15] LABS: BASOPHILS % (AUTO) 0.1 % (0.0-2.0); EOSINOPHILS # (AUTO) 0.2 K/uL (0.0-0.4); EOSINOPHILS % (AUTO) 1.1 % (0.0-4.0); HEMATOCRIT 31.9 % (36-48); HEMOGLOBIN 10.2 g/dL (12.0-16.0); LYMPHOCYTES # (AUTO) 1.4 K/uL (1.0-5.5); LYMPHOCYTES % (AUTO) 9.4 % (20.5-51.5); MEAN CORPUSCULAR HEMOGLOBIN 23 pg (27-31); MEAN CORPUSCULAR HGB CONC 32 % (32-36); MEAN CORPUSCULAR VOLUME 72 fL (79.0-98.0); MONOCYTES # (AUTO) 0.8 K/uL (0.0-1.0); MONOCYTES % (AUTO) 5.3 % (1.7-9.3); NEUTROPHILS # (AUTO) 12.9 K/uL (1.8-7.7); NEUTROPHILS % (AUTO) 84.1 % (40.0-70.0); RED BLOOD CELL COUNT(AUTO) 4.43 MIL/uL (4.2-6.2); RED CELL DISTRIBUTION WIDTH 25.8 % (9.0-15.0); WHITE BLOOD COUNT (AUTO) 15.3 K/uL (4.8-10.8)
[2017-02-02 07:26] LABS: ALBUMIN 1.9 g/dL (3.4-4.8); CALCIUM 8.6 mg/dL (8.4-11.0); CREATININE 0.85 mg/dL (0.55-1.30); PHOSPHORUS 1.9 mg/dL (2.7-4.5); POTASSIUM 3.9 mmol/L (3.5-5.1); TOTAL BILIRUBIN 0.7 mg/dL (0.0-1.0)
[2017-02-02 08:00] VITALS: BP 142/88; PULSE 103; RESP 19; TEMP 98; O2SAT 98
--- NOTE | 2017-02-02 08:00 | NUR ---
initial notes rec patient awake alert seen ambulating on the hallway. resp easy and unlabored. abdominal dressing intact with bernie in place.denies pain at this time. bed in low position and side rails up and locked. call light within reached and knows when to call for assistance. will continue to monitor patient.
--- NOTE | 2017-02-02 08:49 | NUR ---
rounds seen by dr oreilly in the room. dressing changed on the abd incision area. chemo intact but noted with small serous drain on the mid and lower area. pack with kerlix fluff and abd. bernie was emptied with small amount of serous drain. simmons intact but clamped at this time for bladder training. will continue to monitor patient.
[2017-02-02 09:08] LABS: PLATELET COUNT (AUTO) 454 K/uL (130-430)
[2017-02-02] MEDS: LOSARTAN POTASSIUM 25 MG TABLET PO SCH ×2 (09:54→21:48)
[2017-02-02] MEDS: ENOXAPARIN SODIUM 40 MG/0.4 ML SYRINGE SUBCUT SCH (09:54)
[2017-02-02 12:08] VITALS: BP 152/81; PULSE 104; RESP 20; TEMP 98.2; O2SAT 99
--- NOTE | 2017-02-02 12:30 | NUR ---
PHYSICAL THERAPY CO-SIGN The Physical Therapy Progress Notes documented by Manhole Builder have been reviewed. Reviewed/Co-Signed by: Glenda William PT Documentation Done by: Lit Kline PTA I concur with the documentation of this FOREST PATROLMAN. Plan: continue with the plan of care if she remains in this hospital. Addendum: 02/02/17 at 1530 by Glenda William PT Amended: Links added.
--- NOTE | 2017-02-02 14:00 | NUR ---
rounds seen by dr rosa and dr talamantes. sitting at bedside in a chair and marty well.
[2017-02-02 14:18] LABS: CREATININE 0.85 mg/dL (0.55-1.30)
--- NOTE | 2017-02-02 15:19 | NUR ---
Nutrition F/U Admitting Diagnosis Anemia Reviewed Pertinent Medical/Surgical Hx Medical Record Patient Primary RN Medical History Comment: DM, HTN per MD notes Per OBGYN consult note 01/27/17: pt found w/ pelvic mass, uterine fibroids, L ovarian cyst, anemia, DM 02/01/17 MD notes: Peritonitis-ESBL E.Coli, GR B Strep, Cintia UTI, Perforated cecum, S/P Hysterectomy, swelling of L leg, nephrotic syndrome, urinary retension. Subjective Information Pt is seen standing beside the bed w/ simmons catheter and family at bedside. +swollen legs. Pt complained of hunger, stated that she wants solid food. RD explained current diet prescription. Pt tolerated coffee/tea and 2 to 3 tbsp of cream of wheat this morning. Pt is diabetic, endorsed to dietetic premium card cancellation clerk to double check tray. Per EMR, abd is soft and non-distended w/ active bowel sounds. I/O: 700/2530 -1830ml per 12 hrs. PO intake: 30% average of 3 meals, x1 refusal 02/01/17. Pt is not yet meeting adequate nutrition w/ current PO intake. Pt is not yet appropriate for nutrition education Current Diet Order/Nutrition Support Full Liquid diet Patient/Significant Other Able To Verbalize Education Provided Not Indicated Pertinent Medications SSI, levemir, lasix, xanax, lovenox, meropenem/NaCl, zofran Pertinent Labs Na 132 L, BG 304 H, POC BG 308 H, ALB 1.9 L, WBC 15.3 H, H/H 10.2L/31.9L, Plt Count 454H, BUN 6L, Phosphorus 1.9L, AST 9L, ALT 6L Height (Feet) 5 feet Height (Inches) 5.00 inches Weight (Pounds) 163 pounds Weight (Calculated Kilograms) 73.463314 kilograms Patient Weight 73.936 kg Body Mass Index 27.12 kg/m2 %IBW 130 [place]/Adjusted Body Weight IBW: 125 lb, 57 kg. Adj IBW (obesity): 135 lb, 61 kg Recent Weight Change Yes - Possible 8-12 lb wt loss in the past 3 months d/t unknown reasons Weight Status Overweight Gastrointestinal Symptoms None Food Allergies Unknown Usual Diet At Home Regular per nursing notes Skin Integrity Comment: Moises scale: 18; per nursing notes: anterior abd: incision; 3+ pitting edema of BLE Current % PO Poor 30% average of 3 meals. Estimated Energy Expenditure (kcals/day) 0115-4123 kcal/day (30-35 kcal/kg IBW for planned Sx) Estimated Protein Required (g/day) 57-68 gm/day (1-1.2 gm/kg IBW for planned Sx) Estimated Fluid Required (l/day) 1.7-2 L/day (1 ml/kcal/day for maintenance) Problem/Etiology/Signs/Symptoms Increased nutritional needs related to metabolic demands as evidenced by estimated nutritional requirements for elective Sx. *ongoing. Expected Outcomes/Goals - Monitor appetite and PO intakes w/ goal of pt meeting at least 75% of estimated nutritional needs, labs trending WNL, normal GI function, and skin integrity/wt maintenance Dietitian Recommendations * Recommend advance diet if/when medically appropriate. ([facility] diet) Follow Up Mod Risk: F/U in 3-5 days
--- NOTE | 2017-02-02 16:00 | NUR ---
rounds assisted with min assists to the br and marty well. no c/o pain
[2017-02-02 16:12] VITALS: BP 150/82; PULSE 104; RESP 20; TEMP 98.1; O2SAT 99
[2017-02-02 17:54] LABS: TOTAL IRON BIND. CAPACITY 137 ug/dL (250-450)
--- NOTE | 2017-02-02 18:06 | NUR ---
rounds due meds given as ordered. no hypo hyperglycemic reaction noted. ambulates to the br at intervals and voiding freely . ambulating on the hallway with and marty well.
--- NOTE | 2017-02-02 19:00 | NUR ---
closing notes sitting in a chair at the bedside with . denies pain, call light within reached.
[2017-02-02 19:07] LABS: CREATININE,URINE 13.5 MG/DL (30-125)
[2017-02-02 19:09] LABS: CREATININE CLEARANCE,URINE 42.4 ml/min (80-120)
--- NOTE | 2017-02-02 19:30 | NUR ---
OPENING NOTES RECEIVED REPORT FROM DAYSHIFT NURSE. PATIENT IS A/O X4. PT IS AFEBRILE, SITTING UP IN BED, WATCHING TELEVISION. AT BEDSIDE. PT DENIES PAIN. RESPIRATIONS EVEN AND UNLABORED. DRESSINGS DRY AND INTACT. IV PATENT WITH NO SIGNS OF INFILTRATION PRESENT. FALL PRECAUTIONS IN PLACE. CALL LIGHT WITHIN REACH.
[2017-02-02 20:00] VITALS: BP 133/80; PULSE 106; RESP 16; TEMP 99.6; O2SAT 97
--- NOTE | 2017-02-02 21:43 | NUR ---
RN ROUNDS PT SITTING IN CHAIR BY BEDSIDE. RESPIRATIONS EVEN AND UNLABORED AFTER A WALK AROUND UNIT UTILIZING WALKER. AT BEDSIDE. NO S/S OF ACUTE DISTRESS NOTED. PT DENIES PAIN. PT STATES PRESSURE IN ABDOMINAL AREA. CALL LIGHT WITHIN REACH.
[2017-02-02] MEDS: FLUCONAZOLE 200 mg/ NS 100 ML IV SCH (21:48)
--- NOTE | 2017-02-02 23:38 | NUR ---
RN ROUNDS ASSISTED PATIENT TO BATHROOM, 1 VOID. ASSISTED PATIENT BACK TO CHAIR AT BEDSIDE. NO S/S OF ACUTE DISTRESS NOTED. CALL LIGHT WITHIN REACH.
[2017-02-03] VITALS (7 sets, daily range): BP systolic 14–157; BP diastolic 72–92; PULSE 99–106; RESP 17–20; TEMP 98.3–99; O2SAT 93–98
--- NOTE | 2017-02-03 01:30 | NUR ---
RN ROUNDS PT IS SLEEPING IN BED, VISIBLE RISE AND FALL OF CHEST NOTED. NO S/S OF ACUTE DISTRESS, FALL PRECAUTIONS IN PLACE. CALL LIGHT WITHIN REACH.
--- NOTE | 2017-02-03 03:30 | NUR ---
RN ROUNDS PT SLEEPING , NO CHANGE IN CONDITION. NO S/S OF ACUTE DISTRESS NOTED. CALL LIGHT WITHIN REACH.
--- NOTE | 2017-02-03 05:30 | NUR ---
RN ROUNDS PT SLEEPING. NO CHANGE IN CONDITION. NO S/S OF ACUTE DISTRESS NOTED.
--- NOTE | 2017-02-03 06:25 | NUR ---
BLOOD SUGAR 62 PATIENT IS DRINKING ORANGE JUICE, WILL REASSESS.
[2017-02-03] MEDS: FUROSEMIDE 20 MG/2 ML VIAL IVP SCH ×3 (07:00→21:52)
[2017-02-03] MEDS: MEROPENEM 1 GM in NS 100 ML IV SCH ×2 (07:00→14:38)
--- NOTE | 2017-02-03 07:20 | NUR ---
CLOSING NOTES PT IS A/O X4, SITTING AT BEDSIDE. IV ANTIBIOTICS INFUSING. NO S/S OF ACUTE DISTRESS NOTED. CALVIN DRAIN EMPTIED 15ML OF SEROSANGUINEOUS DRAINAGE. BLOOD SUGAR 79, APPLE JUICE PROVIDED. AT BEDSIDE. CALL LIGHT WITHIN REACH. WILL ENDORSE CARE TO DAYSHIFT NURSE.
--- NOTE | 2017-02-03 08:00 | NUR ---
initial notes rec patient awake alert sitting in a chair at bedside with the . resp easy and unlabored. denies pain at this time. ivl on the l forearm intact. no infiltration noted.ambulates at intervals to the br and the hallway. bed in low position and side rails up and locked. call light within reached and knows when to call for assistance.
[2017-02-03 08:14] LABS: A/G RATIO 0.6 (0.7-1.7); ALBUMIN 2.2 g/dL (2.9-4.4); ALPHA-1-GLOBULIN 0.5 g/dL (0.0-0.4); ALPHA-2-GLOBULIN 1.1 g/dL (0.4-1.0); GAMMA GLOBULIN 1.2 g/dL (0.4-1.8); GLOBULIN, TOTAL 3.8 g/dL (2.2-3.9); M-SPIKE Not Observed g/dL (Not Observed)
--- NOTE | 2017-02-03 10:00 | NUR ---
rounds dressing changed was done on abdominal incision area. chemo intact on the abdomen and with drainage noted on the lower part of the incision by the symphysis pubic area. apply abd binder and walk with p.t on the hallway.
[2017-02-03] MEDS: ENOXAPARIN SODIUM 40 MG/0.4 ML SYRINGE SUBCUT SCH (10:23)
[2017-02-03] MEDS: LOSARTAN POTASSIUM 25 MG TABLET PO SCH ×2 (10:29→21:52)
[2017-02-03 11:15] LABS: HEPATITIS A AB, IgM Negative (Negative); HEPATITIS B CORE AB, IgM Negative (Negative); HEPATITIS B SURFACE AG Negative (Negative)
--- NOTE | 2017-02-03 12:00 | NUR ---
rounds continue to be on clear liquid and marty well. no nausea vomiting noted. no hypo hyperglycemic reaction noted.call light within reached.
--- NOTE | 2017-02-03 14:00 | NUR ---
rounds pt had a large amount of bowel movement and dr talamantes was called. continue to ambulate at intervals and marty well on the hallway.
--- NOTE | 2017-02-03 14:26 | NUR ---
PHYSICAL THERAPY CO-SIGN The Physical Therapy Progress Notes documented by Hedis Review Nurse have been reviewed. Reviewed/Co-Signed by: Glenda William, PT Documentation Done by: Yaeklin Leblanc PTA I concur with the documentation of this TALENT BUYER. Plan: continue PT as per plan of care if she remains in this hospital. Addendum: 02/03/17 at 1426 by Glenda William PT Amended: Links added.
--- NOTE | 2017-02-03 17:00 | NUR ---
rounds seen by dr talamantes and with orders. continue to ambulate with on the hallway and amrty well.
[2017-02-03] MEDS: INSULIN REGULAR, HUMAN 100 UNITS/ML, 10 ML VIAL (novoLIN R) SUBCUT PRN (17:51)
--- NOTE | 2017-02-03 18:30 | NUR ---
closing notes pt got her first soft ccho diet tolerated well . no nausea and vomiting noted. continue to sit at bedside and marty well. no c/o pain.
--- NOTE | 2017-02-03 19:10 | NUR ---
OPENING NOTES RECEIVED REPORT FROM DAYSHIFT NURSE. PATIENT IS A/O X4. PT IS AFEBRILE, SITTING UP IN CHAIR AT BEDSIDE, WATCHING TELEVISION WITH AT BEDSIDE. PT DENIES PAIN. RESPIRATIONS EVEN AND UNLABORED. DRESSINGS DRY AND INTACT. IV PATENT WITH NO SIGNS OF INFILTRATION PRESENT. FALL PRECAUTIONS IN PLACE. CALL LIGHT WITHIN REACH.
[2017-02-03] MEDS ORDERED: COMMUNICATION ORDER XX ONE (19:15)
--- NOTE | 2017-02-03 21:47 | NUR ---
ACCUCHECK 165 PT DENIES INSULIN.
[2017-02-03] MEDS: FLUCONAZOLE 200 mg/ NS 100 ML IV SCH (21:51)
--- NOTE | 2017-02-03 22:30 | NUR ---
IV PLACEMENT: # 22 gauge angiocath placed to right hand . Use of asceptic technique. Opsite placed over site. Blood return noted. Flushed with 10 cc of normal saline. No evidence of infiltration noted. Patient tolerated well, 1 attempt.
--- NOTE | 2017-02-03 23:30 | NUR ---
RN ORUNDS PT SITTING AT BEDSIDE IN CHAIR. NO S/S OF ACUTE DISTRESS NOTED. IV ANTIBIOTICS INFUSING, NO SIGNS OF INFILTRATION PRESENT. CALL LIGHT WITHIN REACH.
[2017-02-04] MEDS: MEROPENEM 1 GM in NS 100 ML IV SCH ×3 (00:44→13:40)
--- NOTE | 2017-02-04 00:46 | NUR ---
CALVIN DRAIN DRAINED 5ML OF PINK FLUID, CALVIN FILLED WITH GAS.
--- NOTE | 2017-02-04 02:45 | NUR ---
RN ROUNDS PT SLEEPING, VISIBLE RISE AND FALL OF CHEST NOTED. NO S/S OF ACUTE DISTRESS NTOED. FALL PREACUTIONS IN PLACE, CALL LIGHT WITHIN REACH. WILL CONTINUE TO MONITOR.
[2017-02-04 03:41] VITALS: BP 147/86; PULSE 103; RESP 18; TEMP 97.3; O2SAT 96
--- NOTE | 2017-02-04 04:00 | NUR ---
WOUND CARE PT TOLERATED. SEROSANGUINEOUS DRAINAGE. CALVIN DRAINED 5 ML SEROSANGUINEOUS DRAINAGE.
--- NOTE | 2017-02-04 05:22 | NUR ---
RN ROUNDS PT SLEEPING, VISIBLE RISE AND FALL OF CHEST NOTED. NO S/S OF ACUTE DISTRESS. BED IN LOWEST POSITION, CALL LIGHT WITHIN REACH.
[2017-02-04] MEDS: FUROSEMIDE 20 MG/2 ML VIAL IVP SCH ×2 (06:11→13:41)
[2017-02-04 07:05] LABS: BASOPHILS % (AUTO) 0.4 % (0.0-2.0); EOSINOPHILS # (AUTO) 0.2 K/uL (0.0-0.4); EOSINOPHILS % (AUTO) 2.7 % (0.0-4.0); HEMATOCRIT 31.4 % (36-48); LYMPHOCYTES # (AUTO) 1.8 K/uL (1.0-5.5); MEAN CORPUSCULAR HEMOGLOBIN 23 pg (27-31); MEAN CORPUSCULAR HGB CONC 32 % (32-36); MEAN CORPUSCULAR VOLUME 71 fL (79.0-98.0); MONOCYTES # (AUTO) 0.6 K/uL (0.0-1.0); MONOCYTES % (AUTO) 7.4 % (1.7-9.3); NEUTROPHILS # (AUTO) 6.2 K/uL (1.8-7.7); NEUTROPHILS % (AUTO) 68.5 % (40.0-70.0); PLATELET COUNT (AUTO) 510 K/uL (130-430); RED BLOOD CELL COUNT(AUTO) 4.41 MIL/uL (4.2-6.2); RED CELL DISTRIBUTION WIDTH 25.5 % (9.0-15.0)
--- NOTE | 2017-02-04 07:05 | NUR ---
CLOSING NOTES PT IS A/O X4, SITTING AT BEDSIDE. IV ANTIBIOTICS INFUSING. NO S/S OF ACUTE DISTRESS NOTED. CALVIN DRAIN EMPTIED 10ML OF SEROSANGUINEOUS DRAINAGE. BLOOD SUGAR 61, APPLE JUICE PROVIDED. CALL LIGHT WITHIN REACH. WILL ENDORSE CARE TO DAYSHIFT NURSE.
[2017-02-04 07:11] LABS: WHITE BLOOD COUNT (AUTO) 8.8 K/uL (4.8-10.8)
[2017-02-04 07:14] LABS: ALBUMIN 1.8 g/dL (3.4-4.8); CALCIUM 8.8 mg/dL (8.4-11.0); CREATININE 0.76 mg/dL (0.55-1.30); POTASSIUM 3.1 mmol/L (3.5-5.1); TOTAL BILIRUBIN 0.4 mg/dL (0.0-1.0)
--- NOTE | 2017-02-04 07:35 | NUR ---
AM Rounds: Received pt sitting up in chair. No acute signs of distress noted. A&Ox4. VSS. IV intact to RUE with no redness or swelling noted to site. Dressing to abdomen CDI with chemo intact. CALVIN drain noted to RLQ draining serosanguineous drainage to bulb suction. Pt denies pain. Afebrile. Bowel sounds present in all 4 quadrants. Call light in reach. pt is able to make needs known. Continue to monitor.
[2017-02-04 08:30] VITALS: BP 143/86; PULSE 101; RESP 19; TEMP 98.8; O2SAT 98
[2017-02-04] MEDS: POTASSIUM CHLORIDE 20 MEQ TAB.PRT.SR PO SCH ×2 (09:22→13:40)
[2017-02-04] MEDS: LOSARTAN POTASSIUM 25 MG TABLET PO SCH (09:23)
[2017-02-04] MEDS: ENOXAPARIN SODIUM 40 MG/0.4 ML SYRINGE SUBCUT SCH (09:23)
--- NOTE | 2017-02-04 09:30 | NUR ---
RN Rounds: AM meds given per MD order. Pt tolerates well. Iv intact to RUE with no redness or swelling noted to site. Pt denies pain. Call light in reach. Continue to monitor.
--- NOTE | 2017-02-04 11:20 | NUR ---
Rounds: Pt sitting up in chair. No acute signs of distress noted. Blood sugar checked and coverage given per MD order. Pt denies pain. IV intact to RUE with no redness or swelling noted to site. Call light in reach. Continue to monitor pt closely.
[2017-02-04] MEDS: INSULIN REGULAR, HUMAN 100 UNITS/ML, 10 ML VIAL (novoLIN R) SUBCUT PRN (11:27)
[2017-02-04] MEDS ORDERED: HYDR-4100 PO (11:35)
[2017-02-04] MEDS ORDERED: FLUC200T38 PO (11:39)
[2017-02-04] MEDS ORDERED: FURO-150 PO (11:40)
[2017-02-04] MEDS ORDERED: INVI1 IV (11:40)
[2017-02-04 12:00] VITALS: BP 135/79; PULSE 102; RESP 20; TEMP 98.2; O2SAT 98
--- NOTE | 2017-02-04 12:30 | NUR ---
PHYSICAL THERAPY CO-SIGN The Physical Therapy Progress Notes documented by [employer] have been reviewed. Reviewed/Co-Signed by: Glenda William PT Documentation Done by: Lit Kline PTA I concur with the documentation of this [employer]. Plan: continue if she remains in this hospital. Addendum: 02/04/17 at 1505 by Glenda William PT Amended: Links added.
--- NOTE | 2017-02-04 13:30 | NUR ---
Dr. Adam Here: Dr. Adam here, per Dr. Adam patient is cleared for discharge home.
[2017-02-04 14:39] LABS: POTASSIUM 3.7 mmol/L (3.5-5.1)
--- NOTE | 2017-02-04 14:39 | NUR ---
Dr. Walden Here: Dr. Walden here, abdominal dressing changed with MD at bedside. Pt tolerates well. CALVIN drain removed by .
--- NOTE | 2017-02-04 16:05 | NUR ---
D/C Patient Patient given medication reconciliation form and D/C instructions. Exit Care provided. Patient verbalized understanding. MD discussed with patient the results and treatment provided. Ambulatory with steady gait for discharge to home. Patient in stable condition, ID band removed. IV intact to RUE and dressing applied, no active bleeding. Rx given. Patient educated on pain management. All belongings sent with patient.
[2017-02-04 17:02] VITALS: BP 99/55; PULSE 70; RESP 20; TEMP 97.4; O2SAT 94
== END 2017-02-04 16:05 | disposition home or self-care (01) | DRG 853 ==
LOC: SED 18:20 → SMU 01-26 00:42 → SIC 01-28 15:10 → SMU 01-29 16:30
PROVIDERS: ADMIT Internal Medicine Hospice and Palliative Medicine; ATTEND Internal Medicine Hospice and Palliative Medicine
PROC: 30233N1 Transfusion of Nonautologous Red Blood Cells into Peripheral Vein, Percutaneous Approach (ICD-10-PCS; 2017-01-26)
PROC: 0DTF0ZZ Resection of Right Large Intestine, Open Approach (ICD-10-PCS; principal; 2017-01-29)
PROC: 0DNH0ZZ Release Cecum, Open Approach (ICD-10-PCS; 2017-01-29)
PROC: 0UT90ZZ Resection of Uterus, Open Approach (ICD-10-PCS; 2017-01-29)
PROC: 0UTC0ZZ Resection of Cervix, Open Approach (ICD-10-PCS; 2017-01-29)
PROC: 0UNF0ZZ Release Cul-de-sac, Open Approach (ICD-10-PCS; 2017-01-29)
PROC: 0UT70ZZ Resection of Bilateral Fallopian Tubes, Open Approach (ICD-10-PCS; 2017-01-29)
PROC: 0UT20ZZ Resection of Bilateral Ovaries, Open Approach (ICD-10-PCS; 2017-01-29)
DX: A41.9 Sepsis, unspecified organism (principal); K35.3 Acute appendicitis with localized peritonitis; N17.9 Acute kidney failure, unspecified; E10.21 Type 1 diabetes mellitus with diabetic nephropathy; E10.40 Type 1 diabetes mellitus with diabetic neuropathy, unspecified; D62 Acute posthemorrhagic anemia; E87.1 Hypo-osmolality and hyponatremia; B37.49 Other urogenital candidiasis; N04.9 Nephrotic syndrome with unspecified morphologic changes; N39.0 Urinary tract infection, site not specified; E10.65 Type 1 diabetes mellitus with hyperglycemia; D25.9 Leiomyoma of uterus, unspecified; E10.319 Type 1 diabetes mellitus with unspecified diabetic retinopathy without macular edema; N83.202 Unspecified ovarian cyst, left side; E66.3 Overweight; B96.20 Unspecified Escherichia coli [E. coli] as the cause of diseases classified elsewhere; E88.09 Other disorders of plasma-protein metabolism, not elsewhere classified; I10 Essential (primary) hypertension; K82.8 Other specified diseases of gallbladder; N73.6 Female pelvic peritoneal adhesions (postinfective); N89.5 Stricture and atresia of vagina; B96.89 Other specified bacterial agents as the cause of diseases classified elsewhere; N92.0 Excessive and frequent menstruation with regular cycle; R79.1 Abnormal coagulation profile; Z78.9 Other specified health status; Z79.4 Long term (current) use of insulin; Z82.49 Family history of ischemic heart disease and other diseases of the circulatory system; Z90.710 Acquired absence of both cervix and uterus; Z68.27 Body mass index [BMI] 27.0-27.9, adult
CPT/HCPCS: 36415; 71010; 71275; 76856-TC; 80053; 80074; 81000-TC; 82570-TC; 82575-TC; 82962; 83036; 83540-TC; 83550-TC; 83605; 83735-TC; 83880; 84100-TC; 84132-TC; 84155; 84156; 84165; 84166; 84443-TC; 84484; 85007; 85025; 85027; 85379; 85610-TC; 85651-TC; 85730-TC; 86140; 86431; 86886; 86900; 86901; 86920; 87040-TC; 87070; 87070-TC; 87075-TC; 87081; 87086; 87186-TC; 88305; 88307; 93005; 93306; 93970; 93971; 94010; 94760; 96361; 96374; 97110-GP; 97116-GP; 97530-GP; 99285; C1727; J1170; J1450; J1650; J1815; J1885; J1940; J1956; J2185; J2250; J2270; J2405; J2704; J3010; J3490; J7030; J7040; J7042; J7050; J7120; P9021; P9046; Q9964; Q9967